=== PATIENT | female | born 1950 | race Caucasian/White ===

== ENCOUNTER 2016-10-27 17:44 | Observation (INO) | payer BC ==
[~2016-10-27] VITALS: Ht 170.2 cm; Wt 117.0 kg
[~2016-10-27 17:44] MED LIST: ADVIN25050 INH; ALBU1AER9 INH; AMB5 PO; ASPEC81 PO; CLON0.5T3 PO; CLON1TAB3 PO; CLR/5 PO; CYM/30 PO; DTR/5 PO; DXY100 PO; LEVA0.63 INH; LMC25 PO; MELO15TA10 PO; METO100T44 PO; MULTTAB58 PO; NRV5 PO; NTRSLP4 SL; PANT40TA PO; SNG10 PO
[2016-10-27] MEDS ORDERED: SODIUM CHLORIDE 0.9% 1000ML 1,000 ML IV STA (17:49)
[2016-10-27] MEDS ORDERED: ONDANSETRON INJ 2 MG/ML 2 ML VIAL IV STA (17:49)
--- NOTE | 2016-10-27 17:58 | EMERGENCY ROOM VISIT NOTE ---
History Report prepared by Claudette: Willam Frye Under the Supervision of: Dr. Robert Neal D.O. First contact with patient: 17:45 Chief Complaint: ILLNESS Stated Complaint: DIARRHEA, KNEE PAIN, NAUSEA History of Present Illness The patient is a 66 year old female who presents to the Emergency Room with complaints of a persistent illness that started around 0300 this morning. She says this is her second bout with this similar illness, her first one being around . This morning, the patient started having nausea, diarrhea , and feeling really cold. Her face then felt like it was on fire. She feels like vomiting but denies any vomiting. The patient took 2 ammonium this morning , and then proceeded to take 2 more throughout the day. However, she continues to have episodes of diarrhea again. She has only been sipping water and Gatorade , but she cannot keep any liquids down. She says she has had no problems with infectious diarrhea like C difficile. The patient notes that she has not taken any recent antibiotics. She is an ex-smoker. The patient is supposed to have a colonoscopy soon. Source of History: patient Onset: 0300 this morning Position: other (global - illness) Timing: other (persistent) Associated Symptoms: + diarrhea, + nausea, No vomiting Note: Associated symptoms: Feeling really cold, then face feeling like it was on fire. Review of Systems See HPI for pertinent positives & negatives. A total of 10 systems reviewed and were otherwise negative. Past Medical & Surgical Medical Problems: (1) Asthma (2) Depression (3) GERD (gastroesophageal reflux disease) (4) Hereditary essential tremor Surgical Problems: (1) H/O esophagogastroduodenoscopy (2) H/O foot surgery (3) H/O shoulder surgery (4) H/O thumb surgery (5) History of knee surgery (6) S/P cholecystectomy (7) S/P hysterectomy Family History Diabetes mellitus MOTHER BROTHER SISTER FH: cancer FATHER Heart disease MOTHER BROTHER Social History Smoking Status: Former Smoker Marital Status: single Occupation Status: employed Current/Historical Medications Scheduled Aspirin (Aspirin EC Low Dose), 81 MG PO QAM Clonazepam (Klonopin), 5 MG PO QAM Clonazepam (Klonopin), 10 MG PO HS Desloratadine (Clarinex), 5 MG PO QAM Doxycycline Hyclate (Doxycycline Hyclate), 100 MG PO BID Duloxetine HCl (Cymbalta), 30 MG PO QAM Duloxetine HCl (Cymbalta), 60 MG PO QAM Fluticasone Prop/Salmeterol (Advair Diskus 250/50 Mcg *), 1 PUFF INH BID Lamotrigine (Lamictal), 75 MG PO BID Levalbuterol Soln (Xopenex 0.63MG/3ML), 0.63 MG INH QID PRN Meloxicam (Mobic), 15 MG PO QAM Metoprolol Succ (Toprol Xl) (Toprol-Xl ), 100 MG PO QAM Montelukast (Singulair *), 10 MG PO QAM Multiple Vitamin (Multivitamin), 1 TAB PO QAM Oxybutynin Chloride (Ditropan), 5 MG PO DAILY Pantoprazole Sodium (Protonix), 40 MG PO BID Scheduled PRN Albuterol (Proair Hfa), 2 PUFF INH Q4H PRN for WHEEZING Nitroglycerin (Nitrostat), 0.4 MG SL Q4 PRN for Chest Pain Allergies Coded Allergies: Penicillins (Verified Allergy, Mild, rash, 10/27/16) Codeine (Verified Allergy, Unknown, n/v, 10/27/16) Physical Exam Vital Signs Date Time Temp Pulse Resp B/P Pulse Ox O2 Delivery O2 Flow Rate FiO2 10/27/16 19:09 84 10/27/16 18:00 37.7 92 20 148/89 94 Room Air Physical Exam GENERAL: Patient is awake, alert, mildly anxious appearing but comfortable. EYES: The conjunctivae are clear. The pupils are round and reactive. EARS, NOSE, MOUTH AND THROAT: The nose is without any evidence of any deformity. Mucous membranes are dry. NECK: The neck is nontender and supple. RESPIRATORY: Normal respiratory effort is noted there is no evidence of wheezing rhonchi or rales CARDIOVASCULAR: Regular rate and rhythm noted there no murmurs rubs or gallops normal S1 normal S2 GASTROINTESTINAL: The abdomen is distended but soft. No specific guarding or rigidity noted. MUSCULOSKELETAL/EXTREMITIES: There is no evidence of gross deformity full range of motion is noted in the hips and shoulders SKIN: There is no obvious evidence of any rash. There are no petechiae, pallor or cyanosis noted. NEUROLOGIC: Patient is awake alert and oriented x3 strength is symmetric patellar reflexes are 2+ bilaterally Medical Decision & Procedures ER Provider Diagnostic Interpretation: X-rays of the abdomen and upright chest were obtained in the emergency department. The report was reviewed. CHEST AND ABDOMEN 2 VIEWS HISTORY: Generalized abdominal pain. COMPARISON: Chest 01/02/2016. FINDINGS: Stable mild cardiomegaly. Bibasilar linear densities favor subsegmental atelectasis. This is not significantly changed. No new focal lung consolidations. No evidence for pulmonary edema. No pleural effusions. No pneumothorax. Prior cholecystectomy. Multiple calcified splenic granulomas. No pneumoperitoneum. No pneumatosis. Multiple pelvic phleboliths. No renal calculi. Nondilated air-filled loops of large and small bowel seen throughout the abdomen. No evidence for bowel obstruction. IMPRESSION: 1. Stable mild cardiomegaly. No acute process within the chest. 2. Unremarkable bowel gas pattern. No evidence for bowel obstruction. Electronically signed by: Rodney Blackburn M.D. 10/27/2016 8:27 PM Laboratory Results 10/27/16 18:10 Red Blood Count 4.47, Mean Corpuscular Volume 91.1, Mean Corpuscular Hemoglobin 29.8, Mean Corpuscular Hemoglobin Concent 32.7, Mean Platelet Volume 8.9, Neutrophils (%) (Auto) 84.2, Lymphocytes (%) (Auto) 10.3, Monocytes (%) (Auto) 4.8, Eosinophils (%) (Auto) 0.3, Basophils (%) (Auto) 0.1, Neutrophils # (Auto) 5.91, Lymphocytes # (Auto) 0.72, Monocytes # (Auto) 0.34, Eosinophils # (Auto) 0.02, Basophils # (Auto) 0.01 10/27/16 18:10 Test 10/27/16 18:10 White Blood Count 7.02 K/uL (4.8-10.8) Red Blood Count 4.47 M/uL (4.2-5.4) Hemoglobin 13.3 g/dL (12.0-16.0) Hematocrit 40.7 % (37-47) Mean Corpuscular Volume 91.1 fL (80-100) Mean Corpuscular Hemoglobin 29.8 pg (25-34) Mean Corpuscular Hemoglobin Concent 32.7 g/dl (32-36) Platelet Count 181 K/uL (130-400) Mean Platelet Volume 8.9 fL (7.4-10.4) Neutrophils (%) (Auto) 84.2 % Lymphocytes (%) (Auto) 10.3 % Monocytes (%) (Auto) 4.8 % Eosinophils (%) (Auto) 0.3 % Basophils (%) (Auto) 0.1 % Neutrophils # (Auto) 5.91 K/uL (1.4-6.5) Lymphocytes # (Auto) 0.72 K/uL (1.2-3.4) Monocytes # (Auto) 0.34 K/uL (0.11-0.59) Eosinophils # (Auto) 0.02 K/uL (0-0.5) Basophils # (Auto) 0.01 K/uL (0-0.2) RDW Standard Deviation 46.1 fL (36.4-46.3) RDW Coefficient of Variation 13.9 % (11.5-14.5) Immature Granulocyte % (Auto) 0.3 % Immature Granulocyte # (Auto) 0.02 K/uL (0.00-0.02) Prothrombin Time 10.1 SECONDS (9.0-12.0) Prothromb Time International Ratio 0.9 (0.9-1.1) Activated Partial Thromboplast Time 25.7 SECONDS (21.0-31.0) Partial Thromboplastin Ratio 1.0 Anion Gap 8.0 mmol/L (3-11) Est Creatinine Clear Calc Drug Dose 74.9 ml/min Estimated GFR () 69.3 Estimated GFR (Non- 59.8 BUN/Creatinine Ratio 10.9 (10-20) Calcium Level 8.4 mg/dl (8.5-10.1) Magnesium Level 1.7 mg/dl (1.8-2.4) Total Bilirubin 0.4 mg/dl (0.2-1) Direct Bilirubin 0.1 mg/dl (0-0.2) Aspartate Amino Transf (AST/SGOT) 22 U/L (15-37) Alanine Aminotransferase (ALT/SGPT) 29 U/L (12-78) Alkaline Phosphatase 97 U/L (45-117) Total Creatine Kinase 54 U/L (26-192) Creatine Kinase MB < 0.5 ng/ml (0.5-3.6) Creatine Kinase MB Ratio (0-3.0) Troponin I < 0.015 ng/ml (0-0.045) Total Protein 6.9 gm/dl (6.4-8.2) Albumin 3.5 gm/dl (3.4-5.0) Lipase 328 U/L (73-393) Laboratory results per my review. Medications Administered Medications (Trade) Dose Ordered Sig/Ember Route Start Time Stop Time Status Last Admin Dose Admin Sodium Chloride (Nss 1000ml) 1,000 ml @ 999 mls/hr Q1H1M STAT IV 10/27/16 17:49 10/27/16 18:49 DC 10/27/16 17:49 999 MLS/HR Ondansetron HCl (Zofran Inj) 4 mg NOW STAT IV 10/27/16 17:49 10/27/16 17:51 DC 10/27/16 18:42 4 MG Magnesium Sulfate (Magnesium Sulfate) 1 gm NOW STAT IV 10/27/16 20:02 10/27/16 20:04 DC 10/27/16 20:02 1 GM ECG Indication: other (illness) Rate (beats per minute): 88 Rhythm: normal sinus Findings: no ectopy, other (No acute ST segment abnormalities, T wave flattening noted in anterior leads) Change: no significant change (otherwise no change from 01/04/2016) ED Course 1744: The patient was evaluated in room A12A. A complete history and physical examination were performed. 1748: Ordered Zofran Inj 4 mg IV, NSS 1000 ml @ 999 mls/hr IV. 1914: Ordered Magnesium Sulfate 2 gm IV. 1914: I reevaluated the patient and she is resting comfortably. Medical Decision Differential diagnosis: Etiologies such as appendicitis, diverticulitis, PUD, biliary pathology, UTI, pancreatitis, obstruction, mesenteric ischemia, aortic pathology, infections, inflammatory bowel disease, renal colic, as well as others were entertained. Nursing notes reviewed. The patient is a 66-year-old female who presented to the emergency department for an evaluation of diarrhea nausea. The patient had low-grade fever. Her physical exam was not consistent with an acute surgical abdomen. The patient was treated with IV fluids and IV magnesium as well as IV Zofran in the emergency department. She was reevaluated multiple times. On subsequent reevaluation she was feeling much better. I discussed the patient's laboratory and radiographic studies with her. She was not able to give a stool sample for evaluation. The patient continued to have symptoms of abdominal crampiness. I discussed her case with the on-call [facility] hospitalist group. They have agreed to evaluate the patient in emergency apartment for further management and disposition. Likely the patient would require further IV hydration if her symptoms do not improve. Consults Time Called: 2054 Consulting Physician: Dr Corado Returned Call: 2099 Impression Primary Impression: Diarrhea Additional Impressions: Nausea, Hypomagnesemia Scribe Attestation The scribe's documentation has been prepared under my direction and personally reviewed by me in its entirety. I confirm that the note above accurately reflects all work, treatment, procedures, and medical decision making performed by me. Departure Information Referrals Tano Ramirez D.O. (PCP) Patient Instructions A Signature Page, [facility]
[2016-10-27 18:00] VITALS: Ht 170.2 cm; Wt 117.0 kg
[2016-10-27] MEDS ORDERED: CLON1TAB3 PO ×2 (18:19)
[2016-10-27] MEDS ORDERED: LAMO150T PO (18:19)
[2016-10-27 18:37] LABS: BASO % 0.1 %; BASO ABS # 0.01 K/uL (0-0.2); COMPLETE YES; EOS % 0.3 %; HEMATOCRIT 40.7 % (37-47); IG% 0.3 %; LYMPH % 10.3 %; LYMPH ABS # 0.72 K/uL (1.2-3.4); MEAN CELL VOLUME 91.1 fL (80-100); MEAN CORPUSCULAR HEMOGLOBIN 29.8 pg (25-34); MEAN CORPUSCULAR HGB CONC 32.7 g/dl (32-36); MEAN PLATELET VOLUME 8.9 fL (7.4-10.4); MONO % 4.8 %; NEUT % 84.2 %; PLATELET COUNT 181 K/uL (130-400); RED BLOOD COUNT 4.47 M/uL (4.2-5.4); WHITE BLOOD COUNT 7.02 K/uL (4.8-10.8)
[2016-10-27 18:51] LABS: INR 0.9 (0.9-1.1); PROTHROMBIN TIME (PATIENT) 10.1 SECONDS (9.0-12.0)
[2016-10-27 19:04] LABS: ALT/SGPT 29 U/L (12-78); AST/SGOT 22 U/L (15-37); BLOOD UREA NITROGEN 11 mg/dl (7-18); BUN/CREATININE RATIO 10.9 (10-20); CALCIUM 8.4 mg/dl (8.5-10.1); CARBON DIOXIDE 27 mmol/L (21-32); CHLORIDE 104 mmol/L (98-107); CREATININE 0.99 mg/dl (0.60-1.20); GLUCOSE 103 mg/dl (70-99); MAGNESIUM 1.7 mg/dl (1.8-2.4); SODIUM 139 mmol/L (136-145)
[2016-10-27 19:05] LABS: ALKALINE PHOSPHATASE 97 U/L (45-117)
[2016-10-27] MEDS ORDERED: MAGNESIUM SULFATE 1GM / D5W 1 GM BAG IV STA ×2 (19:15→20:02)
[2016-10-27] MEDS ORDERED: MAGNESIUM OXIDE 400 MG TAB PO STA (20:02)
[2016-10-27] MEDS ORDERED: ONDANSETRON HOME PACK 4MG OD TAB PO ONE (20:15)
--- NOTE | 2016-10-27 20:29 | DIAGNOSTIC IMAGING REPORT ---
CHEST AND ABDOMEN 2 VIEWS HISTORY: Generalized abdominal pain. COMPARISON: Chest 01/02/2016. FINDINGS: Stable mild cardiomegaly. Bibasilar linear densities favor subsegmental atelectasis. This is not significantly changed. No new focal lung consolidations. No evidence for pulmonary edema. No pleural effusions. No pneumothorax. Prior cholecystectomy. Multiple calcified splenic granulomas. No pneumoperitoneum. No pneumatosis. Multiple pelvic phleboliths. No renal calculi. Nondilated air-filled loops of large and small bowel seen throughout the abdomen. No evidence for bowel obstruction. IMPRESSION: 1. Stable mild cardiomegaly. No acute process within the chest. 2. Unremarkable bowel gas pattern. No evidence for bowel obstruction. Electronically signed by: Rodney Blackburn M.D. 10/27/2016 8:27 PM
[2016-10-27] MEDS ORDERED: ALUMINUM/MAGNESIUM/SIMETH (MAALOX MAX) 30 ML UDC PO PRN (22:30)
[2016-10-27] MEDS ORDERED: ALBUTEROL HFA 8 GM INHALER INH PRN (22:30)
[2016-10-27] MEDS ORDERED: ONDANSETRON INJ 2 MG/ML 2 ML VIAL IV PRN (22:30)
[2016-10-27] MEDS ORDERED: MAGNESIUM HYDROXIDE SUSP 30 ML UDC PO PRN (22:30)
[2016-10-27] MEDS ORDERED: POLYETHYLENE (MIRALAX) 17 GM PACK PO PRN (22:30)
[2016-10-27] MEDS ORDERED: NITROGLYCERIN 0.4 MG SL PER TAB CHARGE SL PRN (22:30)
--- NOTE | 2016-10-27 22:49 | History and Physical ---
History & Physical Date & Time of Service: Oct 27, 2016 at 22:40 Chief Complaint: Diarrhea, Knee Pain, Nausea Primary Care Physician: Aurelia Adkins D.O. History of Present Illness Source: patient, clinic records, hospital records This is a 66 year old female with PMH of major depression/anxiety, asthma, GERD presents with decreased PO intake and nausea/diarrhea - states that this began at 3AM on Wednesday, October 26 - she states that on she has some diarrhea, and took Imodium, it took about 3-4 days for recovery from this diarrhea, and she was doing well until Wednesday, she woke up from sleep due to the diarrhea - she states that associated with this diarrhea was a headache, which is now improving. Was given IVFs in the ER - states she feels much better - but is afraid of going home and having to come back to the hospital. She has been under a lot of stress recently from work; but states her medications for depression and anxiety are working to alleviate her symptoms. Past Medical/Surgical History Medical Problems: (1) Asthma Status: Chronic (2) Depression Status: Chronic (3) GERD (gastroesophageal reflux disease) Status: Chronic (4) Hereditary essential tremor Status: Chronic Surgical Problems: (1) H/O esophagogastroduodenoscopy Status: Chronic (2) H/O foot surgery Status: Chronic (3) H/O shoulder surgery Status: Chronic (4) H/O thumb surgery Status: Chronic (5) History of knee surgery Status: Resolved (6) S/P cholecystectomy Status: Chronic (7) S/P hysterectomy Status: Chronic Family History Diabetes mellitus MOTHER BROTHER SISTER FH: cancer FATHER Heart disease MOTHER BROTHER Social History Smoking Status: Never Smoker Marital Status: single Housing status: lives alone Occupational Status: employed Allergies Coded Allergies: Penicillins (Verified Allergy, Mild, rash, 10/27/16) Codeine (Verified Allergy, Unknown, n/v, 10/27/16) Home Medications Scheduled Aspirin (Aspirin EC Low Dose), 81 MG PO QAM Clonazepam (Klonopin), 5 MG PO QAM Clonazepam (Klonopin), 10 MG PO HS Desloratadine (Clarinex), 5 MG PO QAM Doxycycline Hyclate (Doxycycline Hyclate), 100 MG PO BID Duloxetine HCl (Cymbalta), 30 MG PO QAM Duloxetine HCl (Cymbalta), 60 MG PO QAM Fluticasone Prop/Salmeterol (Advair Diskus 250/50 Mcg *), 1 PUFF INH BID Lamotrigine (Lamictal), 75 MG PO BID Levalbuterol Soln (Xopenex 0.63MG/3ML), 0.63 MG INH QID PRN Meloxicam (Mobic), 15 MG PO QAM Metoprolol Succ (Toprol Xl) (Toprol-Xl ), 100 MG PO QAM Montelukast (Singulair *), 10 MG PO QAM Multiple Vitamin (Multivitamin), 1 TAB PO QAM Oxybutynin Chloride (Ditropan), 5 MG PO DAILY Pantoprazole Sodium (Protonix), 40 MG PO BID Scheduled PRN Albuterol (Proair Hfa), 2 PUFF INH Q4H PRN for WHEEZING Nitroglycerin (Nitrostat), 0.4 MG SL Q4 PRN for Chest Pain Review of Systems Constitutional: + weakness, No chills, No fever Eyes: No worsening of vision Respiratory: No cough, No shortness of breath, No sputum Cardiovascular: No chest pain, No edema, No palpitations Abdomen: + diarrhea, + nausea, No GI bleeding, No constipation, No pain, No vomiting Genitourinary - Female: No dysuria, No hematuria, No urinary frequency, No urinary incontinence, No urinary retention, No urinary urgency Psychiatric: + anxiety (controlled with medications), + depression symptoms Hematologic / Lymphatic: No abnormal bleeding/bruising Integumentary: No rash Allergic / Immunologic: No environmental allergies, No seasonal allergies Physical Exam Vital Signs Date Time Temp Pulse Resp B/P Pulse Ox O2 Delivery O2 Flow Rate FiO2 10/27/16 20:59 123/67 10/27/16 20:44 80 18 10/27/16 20:29 132/72 10/27/16 20:14 85 18 10/27/16 20:01 133/66 10/27/16 19:14 86 20 92 10/27/16 19:09 84 10/27/16 18:00 37.7 92 20 148/89 94 Room Air 10/27/16 17:47 148/89 General Appearance: no apparent distress Head: normocephalic, atraumatic Eyes: normal inspection ENT: hearing grossly normal Respiratory/Chest: lungs clear, normal breath sounds, no respiratory distress, no accessory muscle use Cardiovascular: regular rate, rhythm, no edema, no murmur Abdomen/GI: normal bowel sounds, non tender, soft, no organomegaly Back: no CVA tenderness, no muscle spasm Extremities/Musculoskelatal: normal capillary refill, no pedal edema 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, no motor/sensory deficits, alert, normal mood/affect, oriented x 3 Skin: normal color Lymphatic: no adenopathy Diagnostics Laboratory Results Results Past 24 Hours Test 10/27/16 18:10 Range/Units White Blood Count 7.02 4.8-10.8 K/uL Red Blood Count 4.47 4.2-5.4 M/uL Hemoglobin 13.3 12.0-16.0 g/dL Hematocrit 40.7 37-47 % Mean Corpuscular Volume 91.1 80-100 fL Mean Corpuscular Hemoglobin 29.8 25-34 pg Mean Corpuscular Hemoglobin Concent 32.7 32-36 g/dl Platelet Count 181 130-400 K/uL Mean Platelet Volume 8.9 7.4-10.4 fL Neutrophils (%) (Auto) 84.2 % Lymphocytes (%) (Auto) 10.3 % Monocytes (%) (Auto) 4.8 % Eosinophils (%) (Auto) 0.3 % Basophils (%) (Auto) 0.1 % Neutrophils # (Auto) 5.91 1.4-6.5 K/uL Lymphocytes # (Auto) 0.72 1.2-3.4 K/uL Monocytes # (Auto) 0.34 0.11-0.59 K/uL Eosinophils # (Auto) 0.02 0-0.5 K/uL Basophils # (Auto) 0.01 0-0.2 K/uL RDW Standard Deviation 46.1 36.4-46.3 fL RDW Coefficient of Variation 13.9 11.5-14.5 % Immature Granulocyte % (Auto) 0.3 % Immature Granulocyte # (Auto) 0.02 0.00-0.02 K/uL Prothrombin Time 10.1 9.0-12.0 SECONDS Prothromb Time International Ratio 0.9 0.9-1.1 Activated Partial Thromboplast Time 25.7 21.0-31.0 SECONDS Partial Thromboplastin Ratio 1.0 Sodium Level 139 136-145 mmol/L Potassium Level 4.0 3.5-5.1 mmol/L Chloride Level 104 98-107 mmol/L Carbon Dioxide Level 27 21-32 mmol/L Anion Gap 8.0 3-11 mmol/L Blood Urea Nitrogen 11 7-18 mg/dl Creatinine 0.99 0.60-1.20 mg/dl Est Creatinine Clear Calc Drug Dose 74.9 ml/min Estimated GFR () 69.3 Estimated GFR (Non- 59.8 BUN/Creatinine Ratio 10.9 10-20 Random Glucose 103 70-99 mg/dl Calcium Level 8.4 8.5-10.1 mg/dl Magnesium Level 1.7 1.8-2.4 mg/dl Total Bilirubin 0.4 0.2-1 mg/dl Direct Bilirubin 0.1 0-0.2 mg/dl Aspartate Amino Transf (AST/SGOT) 22 15-37 U/L Alanine Aminotransferase (ALT/SGPT) 29 12-78 U/L Alkaline Phosphatase 97 45-117 U/L Total Creatine Kinase 54 26-192 U/L Creatine Kinase MB < 0.5 0.5-3.6 ng/ml Creatine Kinase MB Ratio 0-3.0 Troponin I < 0.015 0-0.045 ng/ml Total Protein 6.9 6.4-8.2 gm/dl Albumin 3.5 3.4-5.0 gm/dl Lipase 328 73-393 U/L Diagnostic Radiology CHEST AND ABDOMEN 2 VIEWS HISTORY: Generalized abdominal pain. COMPARISON: Chest 01/02/2016. FINDINGS: Stable mild cardiomegaly. Bibasilar linear densities favor subsegmental atelectasis. This is not significantly changed. No new focal lung consolidations. No evidence for pulmonary edema. No pleural effusions. No pneumothorax. Prior cholecystectomy. Multiple calcified splenic granulomas. No pneumoperitoneum. No pneumatosis. Multiple pelvic phleboliths. No renal calculi. Nondilated air-filled loops of large and small bowel seen throughout the abdomen. No evidence for bowel obstruction. IMPRESSION: 1. Stable mild cardiomegaly. No acute process within the chest. 2. Unremarkable bowel gas pattern. No evidence for bowel obstruction. Normal EKG Impression Assessment and Plan This is a 66 year old female with PMH of major depression/anxiety, asthma, GERD presents with decreased PO intake and nausea/diarrhea Viral Gastroenteritis -->patient with diarrhea, decreased PO intake, headache -->likely related to a viral infection -->will continue with IVFs (was given 1L in the ER) -->Zofran PRN -->clear liquid diet and advance as tolerated Hypomagnesemia -->replace Mg and monitor, likely from diarrhea GERD -->continue PPI Major Depression -->continue home medications DVT ppx -->SCDs FULL CODE observation status - likely d/c in AM once tolerating PO intake VTE Prophylaxis VTE Risk Assessment Done? Y/N: Yes Risk Level: Low
[2016-10-27] MEDS ORDERED: IV FLUIDS COMPLETED PRN (23:00)
[2016-10-28 00:30] VITALS: BP 127/43; PULSE 84; TEMP 37.1; O2SAT 94
[2016-10-28] MEDS: ACETAMINOPHEN 325 MG TAB PO PRN ×3 (01:01→23:58)
[2016-10-28] MEDS: SODIUM CHLORIDE 0.9% 1000ML 1,000 ML IV SCH ×3 (02:30→21:45)
[2016-10-28 05:14] LABS: URINE APPEARANCE CLEAR (CLEAR); URINE BILIRUBIN NEG (NEG); URINE COLOR YELLOW; URINE NITRITE NEG (NEG); URINE PH 5.5 (4.5-7.5); URINE SPECIFIC GRAVITY 1.009 (1.000-1.030); UROBILINOGEN NEG (NEG)
[2016-10-28 05:17] LABS: MANUAL MICROSCOPIC REQUIRED? NO
[2016-10-28 05:18] LABS: REVIEW REQ? NO
[2016-10-28 07:25] LABS: HEMATOCRIT 39.8 % (37-47); MEAN CELL VOLUME 93.2 fL (80-100); MEAN CORPUSCULAR HEMOGLOBIN 30.4 pg (25-34); MEAN CORPUSCULAR HGB CONC 32.7 g/dl (32-36); MEAN PLATELET VOLUME 8.7 fL (7.4-10.4); PLATELET COUNT 153 K/uL (130-400); RED BLOOD COUNT 4.27 M/uL (4.2-5.4); WHITE BLOOD COUNT 4.25 K/uL (4.8-10.8)
[2016-10-28 07:49] LABS: BUN/CREATININE RATIO 11.1 (10-20); MAGNESIUM 2.2 mg/dl (1.8-2.4); POTASSIUM 3.7 mmol/L (3.5-5.1)
[2016-10-28] MEDS: ASPIRIN 81 MG ECTAB PO SCH (08:00)
[2016-10-28] MEDS: DULOXETINE (CYMBALTA) 30 MG CAP PO SCH ×3 (08:00→08:07)
[2016-10-28] MEDS: DULOXETINE HCL 60 MG CAP PO SCH ×3 (08:00→08:07)
[2016-10-28] MEDS: FLUTICASONE/SALMETEROL 250/50 (ADVAIR) 14 PUFF/1 INHALER INH SCH ×2 (08:00→21:40)
[2016-10-28] MEDS: MONTELUKAST SOD 10 MG TAB PO SCH (08:00)
[2016-10-28] MEDS: PANTOprazole SOD 40 MG TAB PO SCH ×2 (08:00→21:41)
[2016-10-28] MEDS: OXYBUTYNIN CHLORIDE 5 MG TAB PO SCH (08:00)
[2016-10-28] MEDS: MELOXICAM 7.5 MG TAB PO SCH (08:00)
[2016-10-28] MEDS: MULTIVITAMIN TAB PO SCH (08:00)
[2016-10-28] MEDS: METOPROLOL SUCC 50MG EXT REL TAB PO SCH (08:01)
[2016-10-28] MEDS: CLONAZEPAM 0.5 MG TAB PO SCH (08:04)
[2016-10-28] MEDS ORDERED: NURSING VERBAL MED ORDER ONE (08:15)
[2016-10-28 08:57] VITALS: BP 110/57; PULSE 85; TEMP 36.7; O2SAT 93
[2016-10-28 12:25] VITALS: TEMP 37
--- NOTE | 2016-10-28 13:41 | Progress Note ---
Internal Med Progress Note Date of Service: Oct 28, 2016. Provider Documentation: SUBJECTIVE: Patient is interviewed and examined at bedside. Currently she denies any nausea , vomiting, diarrhea and has minimal lower abdominal pain. Also denies any chest pain, SOB. 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 ASSESSMENT & PLAN: Patient is a 66 yr female with PMH of major depression/anxiety, asthma, GERD who presented with decreased oral intake, nausea and diarrhea which began one week ago and had not relived with Imodium use prior to admission. GI symptoms are associated with mild headache Assessment and plan: Gastroenteritis: : Likely Viral in origin : Nausea, diarrhea improving : Continue IV Fluids : Advance diet as tolerated Zofran for nausea, No antibiotics for now Stool studies pending Hypomagnesemia Secondary to GI loses S/P Mg replacement Currently: 2.2 Monitor levels GERD continue PPI Major Depression Stable Continue home medications Asthma: Stable Continue home medications DVT px SCDs Code Status: FULL CODE Disposition: Plan to discharge home tomorrow if stable Vital Signs: Date Time Temp Pulse Resp B/P Pulse Ox O2 Delivery O2 Flow Rate FiO2 10/28/16 08:57 36.7 85 20 110/57 93 Room Air 10/28/16 08:00 Room Air 10/28/16 00:30 37.1 84 18 127/43 94 Room Air 10/28/16 00:08 81 18 121/83 94 10/27/16 23:05 81 10/27/16 23:04 80 18 117/63 93 Room Air 10/27/16 20:59 123/67 10/27/16 20:44 80 18 10/27/16 20:29 132/72 10/27/16 20:14 85 18 10/27/16 20:01 133/66 10/27/16 19:14 86 20 92 10/27/16 19:09 84 10/27/16 18:00 37.7 92 20 148/89 94 Room Air 10/27/16 17:47 148/89 Lab Results: Results Past 24 Hours Test 10/27/16 18:10 10/28/16 05:00 10/28/16 06:39 Range/Units White Blood Count 7.02 4.25 4.8-10.8 K/uL Red Blood Count 4.47 4.27 4.2-5.4 M/uL Hemoglobin 13.3 13.0 12.0-16.0 g/dL Hematocrit 40.7 39.8 37-47 % Mean Corpuscular Volume 91.1 93.2 80-100 fL Mean Corpuscular Hemoglobin 29.8 30.4 25-34 pg Mean Corpuscular Hemoglobin Concent 32.7 32.7 32-36 g/dl Platelet Count 181 153 130-400 K/uL Mean Platelet Volume 8.9 8.7 7.4-10.4 fL Neutrophils (%) (Auto) 84.2 % Lymphocytes (%) (Auto) 10.3 % Monocytes (%) (Auto) 4.8 % Eosinophils (%) (Auto) 0.3 % Basophils (%) (Auto) 0.1 % Neutrophils # (Auto) 5.91 1.4-6.5 K/uL Lymphocytes # (Auto) 0.72 1.2-3.4 K/uL Monocytes # (Auto) 0.34 0.11-0.59 K/uL Eosinophils # (Auto) 0.02 0-0.5 K/uL Basophils # (Auto) 0.01 0-0.2 K/uL RDW Standard Deviation 46.1 48.4 36.4-46.3 fL RDW Coefficient of Variation 13.9 14.2 11.5-14.5 % Immature Granulocyte % (Auto) 0.3 % Immature Granulocyte # (Auto) 0.02 0.00-0.02 K/uL Prothrombin Time 10.1 9.0-12.0 SECONDS Prothromb Time International Ratio 0.9 0.9-1.1 Activated Partial Thromboplast Time 25.7 21.0-31.0 SECONDS Partial Thromboplastin Ratio 1.0 Sodium Level 139 142 136-145 mmol/L Potassium Level 4.0 3.7 3.5-5.1 mmol/L Chloride Level 104 108 98-107 mmol/L Carbon Dioxide Level 27 27 21-32 mmol/L Anion Gap 8.0 7.0 3-11 mmol/L Blood Urea Nitrogen 11 11 7-18 mg/dl Creatinine 0.99 1.00 0.60-1.20 mg/dl Est Creatinine Clear Calc Drug Dose 74.9 74.2 ml/min Estimated GFR () 69.3 68.5 Estimated GFR (Non- 59.8 59.1 BUN/Creatinine Ratio 10.9 11.1 10-20 Random Glucose 103 94 70-99 mg/dl Calcium Level 8.4 8.0 8.5-10.1 mg/dl Magnesium Level 1.7 2.2 1.8-2.4 mg/dl Total Bilirubin 0.4 0.2-1 mg/dl Direct Bilirubin 0.1 0-0.2 mg/dl Aspartate Amino Transf (AST/SGOT) 22 15-37 U/L Alanine Aminotransferase (ALT/SGPT) 29 12-78 U/L Alkaline Phosphatase 97 45-117 U/L Total Creatine Kinase 54 26-192 U/L Creatine Kinase MB < 0.5 0.5-3.6 ng/ml Creatine Kinase MB Ratio 0-3.0 Troponin I < 0.015 0-0.045 ng/ml Total Protein 6.9 6.4-8.2 gm/dl Albumin 3.5 3.4-5.0 gm/dl Lipase 328 73-393 U/L Urine Color YELLOW Urine Appearance CLEAR CLEAR Urine pH 5.5 4.5-7.5 Urine Specific [place] 1.009 1.000-1.030 Urine Protein NEG NEG Urine Glucose (UA) NEG NEG Urine Ketones NEG NEG Urine Occult Blood NEG NEG Urine Nitrite NEG NEG Urine Bilirubin NEG NEG Urine Urobilinogen NEG NEG Urine Leukocyte Esterase NEG NEG
[2016-10-28 15:05] VITALS: BP 97/62; PULSE 63; TEMP 36.7; O2SAT 95
[2016-10-28] MEDS ORDERED: DULOXETINE HCL 60 MG CAP PO SCH (21:00)
[2016-10-28] MEDS ORDERED: DULOXETINE (CYMBALTA) 30 MG CAP PO SCH (21:00)
[2016-10-28] MEDS ORDERED: CLONAZEPAM 1 MG TAB PO SCH (21:00)
[2016-10-29 00:52] VITALS: BP 130/67; PULSE 68; TEMP 37.1; O2SAT 92
[2016-10-29 07:45] VITALS: BP 98/60; PULSE 68; TEMP 37; O2SAT 94
[2016-10-29] MEDS: SODIUM CHLORIDE 0.9% 1000ML 1,000 ML IV SCH (07:54)
[2016-10-29] MEDS: PANTOprazole SOD 40 MG TAB PO SCH (07:55)
[2016-10-29] MEDS: MONTELUKAST SOD 10 MG TAB PO SCH (07:55)
[2016-10-29] MEDS: FLUTICASONE/SALMETEROL 250/50 (ADVAIR) 14 PUFF/1 INHALER INH SCH (07:55)
[2016-10-29] MEDS: OXYBUTYNIN CHLORIDE 5 MG TAB PO SCH (07:56)
[2016-10-29] MEDS: MULTIVITAMIN TAB PO SCH (07:56)
[2016-10-29] MEDS: METOPROLOL SUCC 50MG EXT REL TAB PO SCH (07:56)
[2016-10-29] MEDS: MELOXICAM 7.5 MG TAB PO SCH (07:56)
[2016-10-29] MEDS: ASPIRIN 81 MG ECTAB PO SCH (07:56)
[2016-10-29] MEDS: CLONAZEPAM 0.5 MG TAB PO SCH (07:58)
[2016-10-29 08:01] VITALS: BP 128/63; PULSE 65
[2016-10-29] MEDS: ACETAMINOPHEN 325 MG TAB PO PRN (09:05)
[2016-10-29] MEDS ORDERED: DICLOFENAC SOD 1% GEL 100 GM TUBE EXT PRN (12:30)
[2016-10-29] MEDS ORDERED: NURSING VERBAL MED ORDER ONE (12:45)
--- NOTE | 2016-10-29 12:47 | Discharge Instructions ---
Discharge Instructions Admission Reason for Admission: Viral Gastroenteritis Discharge Discharge Diagnosis / Problem: Viral Gastroenteritis Discharge Goals Goal(s): Decrease discomfort, Improve function Activity Recommendations Activity Limitations: resume your previous activity Exercise/Sports Limitations: as tolerated . Instructions / Follow-Up Instructions / Follow-Up Follow up with on 11/05/16 at 10.50am at [facility] Take adequate oral intake to keep yourself hydrated Seek immediate medical attention if your develop any fever or your diarrhea is persistent Current Hospital Diet Patient's current hospital diet: Regular Diet Discharge Diet Recommended Diet: Regular Diet Pending Studies Studies pending at discharge: no Medical Emergencies . Who to Call and When: Medical Emergencies: If at any time you feel your situation is an emergency, please call 911 immediately. . Non-Emergent Contact Non-Emergency issues call your: Primary Care Provider . . "Provider Documentation" section prepared by Rene Huerta. VTE Core Measure Inpt VTE Proph given/why not?: SCD's
[2016-10-29 12:59] VITALS: BP 128/63; PULSE 65; TEMP 37; O2SAT 94
--- NOTE | 2016-10-29 13:02 | Progress Note ---
Internal Med Progress Note Date of Service: Oct 29, 2016. Provider Documentation: SUBJECTIVE: Patient is interviewed and examined at bedside. Patient had an episode of diarrhea overnight but currently resolved. She denies any any nausea, vomiting, abdominal pain. OBJECTIVE: Vital Signs-as noted below General Appearance: no apparent distress, Well built and nourished Head: normocephalic, atraumatic Eyes: normal inspection, EOMI, PERRLA ENT: hearing grossly normal Respiratory/Chest: lungs clear, normal breath sounds, no respiratory distress, no accessory muscle use Cardiovascular: regular rate, rhythm, no edema, no murmur Abdomen/GI: Soft, normal bowel sounds, non tender, no organomegaly Back: no CVA tenderness, no muscle spasm Extremities/Musculoskelatal: normal capillary refill, no pedal edema Neurologic/Psych: pile trimmer II-XII nml as tested, no motor/sensory deficits, alert, normal mood/affect, oriented x 3 Skin: normal color Lymphatic: no adenopathy Lab data as noted below. ASSESSMENT & PLAN: Patient is a 66 yr female with PMH of major depression/anxiety, asthma, GERD who presented with decreased oral intake, nausea and diarrhea which began one week ago and had not relived with Imodium use prior to admission. GI symptoms are associated with mild headache Assessment and plan: Gastroenteritis: : Likely Viral in origin : Stool for C.diff is negative : Nausea, vomiting, abd pain resolved : DC IV Fluids : Tolerating diet Zofran for nausea, No antibiotics for now Stool culture pending Hypomagnesemia Secondary to GI loses S/P Mg replacement Resolved GERD continue PPI Major Depression Stable Continue home medications Asthma: Stable Continue home medications DVT px SCDs Code Status: FULL CODE Disposition: Plan to discharge home today Vital Signs: Date Time Temp Pulse Resp B/P Pulse Ox O2 Delivery O2 Flow Rate FiO2 10/29/16 08:01 65 128/63 10/29/16 08:00 Room Air 10/29/16 07:45 37.0 68 20 98/60 94 Room Air 10/29/16 00:52 37.1 68 20 130/67 92 Room Air 10/28/16 23:50 Room Air 10/28/16 16:00 Room Air 10/28/16 15:05 36.7 63 18 97/62 95 Room Air
--- NOTE | 2016-10-29 13:12 | Discharge Summary ---
Discharge Summary Admission Date: Oct 27, 2016 at 22:33 Discharge Date: Oct 29, 2016 Discharge Disposition: Home Principal Diagnosis: Viral Gastroenteritis Secondary Diagnoses/Problems: Hypomagnesemia GERD Depression Asthma Procedures: Chest/Abdomen X ray: 1. Stable mild cardiomegaly. No acute process within the chest. 2. Unremarkable bowel gas pattern. No evidence for bowel obstruction. Medication Reconciliation Continued Medications: Albuterol (Proair Hfa) Aers 2 PUFF INH Q4H PRN for WHEEZING Aspirin (Aspirin EC Low Dose) 81 Mg Ectab 81 MG PO QAM for 30 Days Clonazepam (Klonopin) 1 Mg Tab 0.5 MG PO QAM, TAB Clonazepam (Klonopin) 1 Mg Tab 1 MG PO HS, TAB Desloratadine (Clarinex) 5 Mg Tab 5 MG PO QAM, TAB Duloxetine HCl (Cymbalta) 30 Mg Cap 30 MG PO QAM Duloxetine HCl (Cymbalta) 30 Mg Cap 60 MG PO QAM for 30 Days, #30 CAP 5 Refills Fluticasone Prop/Salmeterol (Advair Diskus 250/50 Mcg *) Aerp 1 PUFF INH BID, 0 Refills Lamotrigine (Lamictal) 150 Mg Tab 75 MG PO BID, TAB Levalbuterol Soln (Xopenex 0.63MG/3ML) Nebu 0.63 MG INH QID PRN, 0 Refills Meloxicam (Mobic) 15 Mg Tab 15 MG PO QAM, TAB Metoprolol Succ (Toprol Xl) (Toprol-Xl ) 100 Mg Tabcr 100 MG PO QAM, TAB Montelukast (Singulair *) 10 Mg Tab 10 MG PO QAM, 0 Refills Multiple Vitamin (Multivitamin) 1 Tab Tab 1 TAB PO QAM, TAB Nitroglycerin (Nitrostat) 0.4 Mg/1 Tab Subl 0.4 MG SL Q4 PRN for Chest Pain for 30 Days Oxybutynin Chloride (Ditropan) 5 Mg Tab 5 MG PO DAILY, TAB Pantoprazole Sodium (Protonix) 40 Mg Tab 40 MG PO BID, #30 TAB Admission Information HPI (per Admitting provider): This is a 66 year old female with PMH of major depression/anxiety, asthma, GERD presents with decreased PO intake and nausea/diarrhea - states that this began at 3AM on October 26 - she states that on she has some diarrhea, and took Imodium, it took about 3-4 days for recovery from this diarrhea, and she was doing well until Wednesday, she woke up from sleep due to the diarrhea - she states that associated with this diarrhea was a headache, which is now improving. Was given IVFs in the ER - states she feels much better - but is afraid of going home and having to come back to the hospital. She has been under a lot of stress recently from work; but states her medications for depression and anxiety are working to alleviate her symptoms. Physical Exam (per Admitting): General Appearance: no apparent distress Head: normocephalic, atraumatic Eyes: normal inspection ENT: hearing grossly normal Respiratory/Chest: lungs clear, normal breath sounds, no respiratory distress, no accessory muscle use Cardiovascular: regular rate, rhythm, no edema, no murmur Abdomen/GI: normal bowel sounds, non tender, soft, no organomegaly Back: no CVA tenderness, no muscle spasm Extremities/Musculoskelatal: normal capillary refill, no pedal edema Neurologic/Psych: regional sales engineer II-XII nml as tested, no motor/sensory deficits, alert , normal mood/affect, oriented x 3 Skin: normal color Lymphatic: no adenopathy Hospital Course Patient is a 66 yr female with PMH of major depression/anxiety, asthma, GERD who presented with decreased oral intake, nausea and diarrhea which began one week ago and had not relived with Imodium use prior to admission. GI symptoms are associated with mild headache as well. Patient had X ray of the abdomen which did not show any obstruction. Also stool studies is negative for c.diff. Stool culture is pending at the time of discharge. Patient was diagnosed to have viral gastroenteritis and treated conservatively with IV fluids and diet was advanced as tolerated. Her electrolytes were replaced during the hospital course as well. Patient's symptoms improved and was discharged home in stable condition. Patient was advised to seek immediate medical attention if her symptoms reoccur or worsen. Assessment and plan: Gastroenteritis: : Likely Viral in origin : Stool for C.diff is negative : Nausea, vomiting, abd pain resolved : DC IV Fluids : Tolerating diet Zofran for nausea, No antibiotics for now Stool culture pending Hypomagnesemia Secondary to GI loses S/P Mg replacement Resolved GERD continue PPI Major Depression Stable Continue home medications Asthma: Stable Continue home medications DVT px SCDs Code Status: FULL CODE Disposition: Plan to discharge home today Total time spent on discharge = This includes examination of the patient, discharge planning, medication reconciliation, and communication with other providers. Discharge Instructions Discharge Instructions Admission Reason for Admission: Viral Gastroenteritis Discharge Discharge Diagnosis / Problem: Viral Gastroenteritis Discharge Goals Goal(s): Decrease discomfort, Improve function Activity Recommendations Activity Limitations: resume your previous activity Exercise/Sports Limitations: as tolerated . Instructions / Follow-Up Instructions / Follow-Up Follow up with on 11/05/16 at 10.50am at [facility] Take adequate oral intake to keep yourself hydrated Seek immediate medical attention if your develop any fever or your diarrhea is persistent Current Hospital Diet Patient's current hospital diet: Regular Diet Discharge Diet Recommended Diet: Regular Diet Pending Studies Studies pending at discharge: no Medical Emergencies . Who to Call and When: Medical Emergencies: If at any time you feel your situation is an emergency, please call 911 immediately. . Non-Emergent Contact Non-Emergency issues call your: Primary Care Provider . . "Provider Documentation" section prepared by Rene Huerta. VTE Core Measure Inpt VTE Proph given/why not?: SCD's Additional Copies To Yusef Westbrook M.D.(PRAFUL)
== END 2016-10-29 13:49 | disposition home or self-care (01) ==
LOC: ENRESERV → ENRESERVDT → ENRESERVTM → EDBD 17:44 → C.EDA 17:45 → C.MS2W 22:33
PROVIDERS: ADMIT Family Medicine; ATTEND Internal Medicine
DX: A08.4 Viral intestinal infection, unspecified (principal); E83.42 Hypomagnesemia; K21.9 Gastro-esophageal reflux disease without esophagitis; F32.9 Major depressive disorder, single episode, unspecified; J45.909 Unspecified asthma, uncomplicated; G25.0 Essential tremor; Z79.82 Long term (current) use of aspirin; Z87.891 Personal history of nicotine dependence; Z90.49 Acquired absence of other specified parts of digestive tract; Z90.710 Acquired absence of both cervix and uterus; Z88.0 Allergy status to penicillin; Z88.5 Allergy status to narcotic agent; Z83.3 Family history of diabetes mellitus; Z82.49 Family history of ischemic heart disease and other diseases of the circulatory system

== ENCOUNTER 2018-02-20 22:35 | Inpatient (IN) | payer OTHER ==
[~2018-02-20] VITALS: Ht 170.2 cm; Wt 114.2 kg
[~2018-02-20 22:35] MED LIST changes: -AMB5 PO; -ASPEC81 PO; +ASPI-320 PO; -CLON0.5T3 PO; -DXY100 PO; +LAMO150T PO; -LMC25 PO; -NRV5 PO
[2018-02-20] MEDS ORDERED: LIDOCAINE HCL 2% VISC SOLN 20 ML UDC PO STA (22:52)
[2018-02-20] MEDS ORDERED: ASPIRIN 81 MG CHEW PO STA (22:52)
[2018-02-20] MEDS ORDERED: ALUMINUM/MAGNESIUM SUSP 30 ML UDC PO STA (22:52)
--- NOTE | 2018-02-20 23:21 | DIAGNOSTIC IMAGING REPORT ---
SINGLE VIEW CHEST CLINICAL HISTORY: Atypical chest pain. FINDINGS: An AP, portable, upright chest radiograph is compared to study dated 10/27/2016. Correlation is made with chest CT dated 06/22/2015. The examination is degraded by portable technique and patient rotation. The heart is enlarged. The pulmonary vasculature is noncongested. Chronic interstitial thickening is similar to previous. There is minimal basilar atelectasis. No airspace consolidation or large pleural effusion is identified. No pneumothorax is seen. The skeletal structures are osteopenic. The bony thorax is grossly intact. IMPRESSION: Cardiomegaly with no acute cardiopulmonary abnormality. Electronically signed by: Gonzales Kim M.D. 02/20/2018 11:20 PM Dictated Date/Time: 02/20/2018 11:19 PM
[2018-02-20 23:23] LABS: BASO % 0.2 %; BASO ABS # 0.01 K/uL (0-0.2); EOS % 0.6 %; EOS ABS # 0.04 K/uL (0-0.5); HEMATOCRIT 37.3 % (37-47); HEMOGLOBIN 12.6 g/dL (12.0-16.0); IG# 0.02 K/uL (0.00-0.02); LYMPH % 8.8 %; LYMPH ABS # 0.58 K/uL (1.2-3.4); MEAN CELL VOLUME 92.6 fL (80-100); MEAN CORPUSCULAR HEMOGLOBIN 31.3 pg (25-34); MEAN CORPUSCULAR HGB CONC 33.8 g/dl (32-36); MEAN PLATELET VOLUME 8.1 fL (7.4-10.4); MONO % 4.1 %; MONO ABS # 0.27 K/uL (0.11-0.59); NEUT ABS # 5.68 K/uL (1.4-6.5); PLATELET COUNT 168 K/uL (130-400); RED CELL DISTRIBUTION WIDTH SD 44.1 fL (36.4-46.3)
[2018-02-20] MEDS ORDERED: ASPI81TA28 PO (23:23)
[2018-02-20 23:43] LABS: ALBUMIN 3.4 gm/dl (3.4-5.0); ALT/SGPT 26 U/L (12-78); AST/SGOT 21 U/L (15-37); BLOOD UREA NITROGEN 17 mg/dl (7-18); CALCIUM 8.4 mg/dl (8.5-10.1); CARBON DIOXIDE 25 mmol/L (21-32); CREATININE 0.86 mg/dl (0.60-1.20); GLUCOSE 111 mg/dl (70-99); LIPASE 281 U/L (73-393); POTASSIUM 3.7 mmol/L (3.5-5.1); SODIUM 137 mmol/L (136-145)
[2018-02-20 23:48] LABS: ALKALINE PHOSPHATASE 89 U/L (45-117)
[2018-02-20] MEDS ORDERED: ONDANSETRON INJ 2 MG/ML 2 ML VIAL IV STA (23:49)
[2018-02-21] VITALS (11 sets, daily range): BP systolic 94–135; BP diastolic 48–82; PULSE 62–65; TEMP 36.7–37; O2SAT 91–96; Ht 170.2 cm; Wt 114.2 kg
[2018-02-21] MEDS ORDERED: OPTIRAY 320 IV PRN (01:15)
--- NOTE | 2018-02-21 01:20 | EMERGENCY ROOM VISIT NOTE ---
ED Visit Note First contact with patient: 22:45 I did evaluate and examine this patient myself. I did guide management for the patient. I agree with the PA's assessment as discussed. Please see the PAs dictation for further details. I did independently review the CT scan and blood work. The patient is presenting with left-sided chest pain. Her CAT scan did not show signs of pulmonary embolism. The hospitalist was consulted for further evaluation.
--- NOTE | 2018-02-21 01:57 | EMERGENCY ROOM VISIT NOTE ---
History First contact with patient: 22:45 Chief Complaint: CHEST PAIN Stated Complaint: ACID REFLUX, CHEST PAIN, HEADACHE, NAUSEA, PAIN Nursing Triage Summary: Left sided chest pain that resolved after taking nitrostat. Pt also c/o belching and reflux. History of Present Illness The patient is a 67 year old female who presents to the Emergency Room with complaints of left-sided chest pain that went to her back described as discomfort, ranging in severity was 5 out of 10 but has resolved after taking her nitroglycerin. Patient also complains of reflux currently. She complains of belching and sour taste in her mouth. Patient takes a PPI daily. She states this was to take twice a day but her insurance will not cover for it. Patient is here on vacation. She used to live here. She is traveling from an [place]. She has traveled recently. No history of blood clots. Patient denies exertional chest pain, diaphoresis, abdominal pain, new leg pain or swelling, jaw pain, neck pain, arm pain, numbness, tingling. No prior heart attack. Patient denies blood pressure, cholesterol, diabetes. She does not currently smoke but has smoked in the past. Unknown family history. Review of Systems An 10 system review of systems was completed with positives and pertinent negatives listed in the HPI. Past Medical/Surgical History Medical Problems: (1) Asthma (2) Depression (3) GERD (gastroesophageal reflux disease) (4) Hereditary essential tremor (5) Viral gastroenteritis Surgical Problems: (1) H/O esophagogastroduodenoscopy (2) H/O foot surgery (3) H/O shoulder surgery (4) H/O thumb surgery (5) History of knee surgery (6) S/P cholecystectomy (7) S/P hysterectomy Family History Diabetes mellitus MOTHER BROTHER SISTER FH: cancer FATHER Heart disease MOTHER BROTHER Social History Smoking Status: Never Smoker Drug Use: none Marital Status: single Occupation Status: employed Current/Historical Medications Scheduled Aspirin (Aspirin Ec), 81 MG PO DAILY Clonazepam (Klonopin), 5 MG PO QAM Clonazepam (Klonopin), 10 MG PO HS Desloratadine (Clarinex), 5 MG PO QAM Duloxetine HCl (Cymbalta), 60 MG PO HS Duloxetine HCl (Cymbalta), 60 MG PO QAM Lamotrigine (Lamictal), 150 MG PO QAM Levalbuterol Soln (Xopenex 0.63MG/3ML), 0.63 MG INH QID PRN Meloxicam (Mobic), 15 MG PO QAM Metoprolol Succ (Toprol Xl) (Toprol-Xl ), 100 MG PO QAM Montelukast (Singulair *), 10 MG PO QAM Oxybutynin Chloride (Ditropan), 2.5 MG PO DAILY Pantoprazole Sodium (Protonix), 40 MG PO QAM Scheduled PRN Albuterol (Proair Hfa), 2 PUFF INH Q4H PRN for WHEEZING Nitroglycerin (Nitrostat), 0.4 MG SL Q4 PRN for Chest Pain Physical Exam Vital Signs Date Time Temp Pulse Resp B/P (MAP) Pulse Ox O2 Delivery O2 Flow Rate FiO2 02/21/18 00:26 70 20 130/56 99 Room Air 02/20/18 23:34 95 Room Air 02/20/18 23:30 Room Air 02/20/18 22:56 72 02/20/18 22:39 37.3 74 20 118/70 93 Room Air Physical Exam VITALS: Vitals are noted on the nurse's note and reviewed by myself. Vital signs stable. GENERAL: Pleasant female, in no acute distress, nondiaphoretic, well-developed well-nourished. SKIN: The skin was without rashes, erythema, edema, or bruising. There is no tenting of the skin. Capillary reflex less than 2 seconds. HEAD: Normocephalic atraumatic. EARS: External auditory canals clear, tympanic membranes pearly villalobos without erythema or effusion bilaterally. EYES: Pupils equal round and reactive to light and accommodation. Conjunctivae without injection, sclerae without icterus. Extraocular movements intact. NOSE: Patent, turbinates without inflammation or discharge. MOUTH: Mucous membranes moist. Pharynx without erythema or exudate. Uvula midline. Airway patent. Tongue does not deviate. NECK: Supple without nuchal rigidity. No lymphadenopathy. No thyromegaly. Cervical spine is nontender. No JVD. HEART: Regular rate and rhythm chest nontender to palpation LUNGS: Clear to auscultation bilaterally without wheezes, rales or rhonchi. No retractions or accessory muscle use. ABDOMEN: Positive bowel sounds x 4. Normal tympanic percussion. Soft, nontender, without masses or organomegaly. Barr sign negative. No guarding or rebound tenderness. No CVA tenderness MUSCULOSKELETAL: No muscle atrophy, erythema, noted. NEURO: Patient was alert and oriented to person place and time. Normal sensation to light and sharp touch. No focal neurological deficits. Medical Decision & Procedures Laboratory Results 02/20/18 23:15 Red Blood Count 4.03, Mean Corpuscular Volume 92.6, Mean Corpuscular Hemoglobin 31.3, Mean Corpuscular Hemoglobin Concent 33.8, Mean Platelet Volume 8.1, Neutrophils (%) (Auto) 86.0, Lymphocytes (%) (Auto) 8.8, Monocytes (%) (Auto) 4.1, Eosinophils (%) (Auto) 0.6, Basophils (%) (Auto) 0.2, Neutrophils # (Auto) 5.68, Lymphocytes # (Auto) 0.58, Monocytes # (Auto) 0.27, Eosinophils # (Auto) 0.04, Basophils # (Auto) 0.01 02/20/18 23:15 Test 02/20/18 23:15 White Blood Count 6.60 K/uL (4.8-10.8) Red Blood Count 4.03 M/uL (4.2-5.4) Hemoglobin 12.6 g/dL (12.0-16.0) Hematocrit 37.3 % (37-47) Mean Corpuscular Volume 92.6 fL (80-100) Mean Corpuscular Hemoglobin 31.3 pg (25-34) Mean Corpuscular Hemoglobin Concent 33.8 g/dl (32-36) Platelet Count 168 K/uL (130-400) Mean Platelet Volume 8.1 fL (7.4-10.4) Neutrophils (%) (Auto) 86.0 % Lymphocytes (%) (Auto) 8.8 % Monocytes (%) (Auto) 4.1 % Eosinophils (%) (Auto) 0.6 % Basophils (%) (Auto) 0.2 % Neutrophils # (Auto) 5.68 K/uL (1.4-6.5) Lymphocytes # (Auto) 0.58 K/uL (1.2-3.4) Monocytes # (Auto) 0.27 K/uL (0.11-0.59) Eosinophils # (Auto) 0.04 K/uL (0-0.5) Basophils # (Auto) 0.01 K/uL (0-0.2) RDW Standard Deviation 44.1 fL (36.4-46.3) RDW Coefficient of Variation 13.0 % (11.5-14.5) Immature Granulocyte % (Auto) 0.3 % Immature Granulocyte # (Auto) 0.02 K/uL (0.00-0.02) D-Dimer 1300 ug/L FEU (0-500) Anion Gap 9.0 mmol/L (3-11) Est Creatinine Clear Calc Drug Dose 83.9 ml/min Estimated GFR () 81.6 Estimated GFR (Non- 70.4 BUN/Creatinine Ratio 20.0 (10-20) Calcium Level 8.4 mg/dl (8.5-10.1) Total Bilirubin 0.4 mg/dl (0.2-1) Direct Bilirubin 0.2 mg/dl (0-0.2) Aspartate Amino Transf (AST/SGOT) 21 U/L (15-37) Alanine Aminotransferase (ALT/SGPT) 26 U/L (12-78) Alkaline Phosphatase 89 U/L (45-117) Troponin I < 0.015 ng/ml (0-0.045) Total Protein 7.0 gm/dl (6.4-8.2) Albumin 3.4 gm/dl (3.4-5.0) Lipase 281 U/L (73-393) Medications Administered Medications (Trade) Dose Ordered Sig/Ember Route Start Time Stop Time Status Last Admin Dose Admin Lidocaine HCl (Viscous Lidocaine 2% Soln) 10 ml NOW STAT PO 02/20/18 22:52 02/20/18 22:56 DC 02/20/18 23:22 10 ML Al Hydroxide/Mg Hydroxide (Maalox Susp) 30 ml NOW STAT PO 02/20/18 22:52 02/20/18 22:56 DC 02/20/18 23:22 30 ML Aspirin (Aspirin Chew) 324 mg NOW STAT PO 02/20/18 22:52 02/20/18 22:56 DC 02/20/18 23:22 324 MG Ondansetron HCl (Zofran Inj) 4 mg NOW STAT IV 02/20/18 23:49 02/20/18 23:50 DC 02/21/18 00:26 4 MG ED Course Prior records/ancillary studies reviewed. Triage Nursing notes reviewed. Additional history obtained from family and friends. The patient's history was concerning for chest pain. Differential diagnosis: Etiologies such as cardiac ischemia, aortic dissection, pulmonary embolism, pneumonia, pneumothorax, musculoskeletal, infections, pericarditis, myocarditis , esophageal rupture, gastrointestinal, as well as others were entertained. Physical examination: As above. ER treatment provided: Aspirin, GI cocktail On reassessment the patient felt better. Diagnostic interpretation by me: The electrocardiogram was normal sinus, normal intervals, T-wave inversions in V1 through V3, T-wave flattening in V4 through V6. Rate of 70. First-degree AV block. EKG compared to prior EKG with new T-wave flattenings in the lateral leads. Impression normal sinus rhythm with a first-degree AV block with new T- wave changes in the anterior lateral septal leads interpreted by myself The labs revealed elevated d-dimer and patient was sent for CTA. Negative troponin Imaging studies: Chest x-ray with no acute consolidation, pneumothorax free of my interpretation CTA negative for PE per stat radiology Consultation: A consultation was placed with the hospitalist, Dr Lebalnc. The case was discussed and diagnostics were reviewed. The patient was evaluated in the ER for further treatment. HEART SCORE: Hx: high/mod/low suspicion: 2 ECG: ST depression/nonspecific changes/normal: 1 Age: Greater than 65/45-64/less than 45: 2 Risk factors: (Hypertension, hyperlipidemia, diabetes, coronary disease, tobacco use, cocaine use): 1 Troponin: Greater than 2 times normal limits/1-2 times normal limits/normal: 0 Total: 6 Exam and history seem consistent with chest pain with concerns for cardiac in etiology. Patient's heart score is elevated. She has had no recent heart testing. Patient will be evaluated medicine for possible admission. Patient took nitroglycerin and this relieved her chest pain. She was given aspirin in the ER. She agrees to treatment plan of possible admission. By the evaluation outlined above emergent etiologies such as aortic dissection, pulmonary embolism , pneumonia, pneumothorax, infections, pericarditis, myocarditis, gastrointestinal, as well as others were deemed relatively unlikely. The pt informed about the findings as listed above. All questions were answered and pleased with the treatment. Case reviewed with my attending The chart was completed utilizing [employer] Speech voice recognition software. Grammatical errors, random word insertions, pronoun errors, and incomplete sentences are an occassional consequence of this system due to software limitations, ambient noise, and hardware issues. Any formal questions or concerns about the content, text, or information contained within the body of this dictation should be directly addressed to the physician assistant casino shift manager for clarification. Medical Decision As above Medication Reconcilliation Current Medication List: was personally reviewed by me Blood Pressure Screening Patient's blood pressure: Normal blood pressure Impression Primary Impression: Substernal precordial chest pain Departure Information Dispostion Being Evaluated By Hospitalist Condition GOOD Referrals No Doctor, Assigned (PCP) Patient Instructions My [facility]
[2018-02-21] MEDS ORDERED: MoRPHine SULFATE 2 MG/ML CARP IV PRN (02:15)
[2018-02-21] MEDS ORDERED: ONDANSETRON INJ 2 MG/ML 2 ML VIAL IV PRN (02:15)
[2018-02-21] MEDS ORDERED: ALUMINUM/MAGNESIUM/SIMETH (MAALOX MAX) 30 ML UDC PO PRN (02:15)
[2018-02-21] MEDS ORDERED: ALBUTEROL HFA 8 GM INHALER INH PRN (02:15)
[2018-02-21] MEDS ORDERED: LEVALBUTEROL 0.63MG/3 ML NEB INH PRN (02:15)
[2018-02-21] MEDS ORDERED: NITROGLYCERIN 0.4 MG SL PER TAB CHARGE SL PRN ×2 (02:15)
[2018-02-21] MEDS ORDERED: KLN5 PO (02:25)
[2018-02-21] MEDS ORDERED: KLN1X PO (02:25)
[2018-02-21] MEDS: SODIUM CHLORIDE 0.9% 1000ML 1,000 ML IV SCH ×2 (04:10→15:50)
--- NOTE | 2018-02-21 04:13 | HISTORY & PHYSICAL EXAMINATION ---
DATE OF ADMISSION: 02/21/2018 CHIEF COMPLAINT: Chest pain. HISTORY OF PRESENT ILLNESS: This is a 67-year-old female with past medical history significant for anxiety, insomnia, essential tremor, irritable bowel syndrome, osteoarthritis of multiple sites, asthma, history of tobacco abuse, major depression, dysphagia, esophageal diverticulum, GERD, overactive bladder, history of bronchitis, and history of obesity, presents with not feeling well and chest pain. Patient moved away from [place] about a year ago, currently living at [place]. She came to visit [place]. Since today morning, she was not feeling well, had headaches, nausea and some vomiting and several episodes of diarrhea and later she developed chest pain which prompted her to come to the ER. She took nitro at home that did not help, but currently the chest pain has gone by itself and nausea is better, but still is feeling weak and tired. Denies any dizziness, no blurred visions, no earache, no runny nose, no sore throat, no cough. Normal bladder movements. No bloody micturition. No blood in the urine or blood in the stools. No skin rash. Patient says she is to follow up with GI here and she has a history of esophageal diverticulum. She vomited a couple of walnuts the other day. She has an appointment with GI next week in [place] .Patient says she has a flight to [place] on Wednesday and would like to get discharged tomorrow if she is doing okay. ALLERGIES: CODEINE, PENICILLINS. PAST MEDICAL HISTORY: As mentioned above. PAST SURGICAL HISTORY: Right total knee arthroplasty, history of cardiac catheterization, EGDs, right knee arthroscopy, left thumb surgery for tendonitis, removal of growth in foot, rotator cuff repair on the left side, total hysterectomy with removal of tubes. MEDICATIONS: Patient is on aspirin 81 mg p.o. daily, Klonopin 0.5 mg in a.m. and 1 mg at nighttime, Cymbalta 60 mg p.o. at bedtime, lamotrigine 150 mg p.o. daily, albuterol 2 puffs every 4 hours p.r.n., Xopenex 0.3 mg inhalation q.i.d. p.r.n., Toprol-XL 100 mg p.o. q.a.m., Meloxicam 15 mg p.o. q.a.m., Singulair 10 mg p.o. q.a.m., nitroglycerin 0.4 mg sublingual p.r.n., Ditropan 2.5 mg p.o. daily, Protonix 40 mg p.o. in a.m. FAMILY HISTORY: Significant for mother had arthritis, diabetes, CHF, hypertension. Father has lung disorder, prostate cancer, glaucoma, ear problems. SOCIAL HISTORY: Former smoker, quit in 1997. Prior to that, smoked 2-1/2 packs a day for 21 years. No alcohol use, no drug use. REVIEW OF SYMPTOMS: As per HPI. Rest of review of symptoms negative. PHYSICAL EXAMINATION: GENERAL: Patient is obese, not in distress. VITAL SIGNS: Temperature 37.3, pulse 64, respiratory rate 20, blood pressure 107/58, oxygen 98% on room air. HEENT: No pallor, no icterus. Pupils equal, round, and reactive to light. NECK: No JVD, no neck masses, no carotid bruits. CARDIOVASCULAR: S1, S2, regular rate and rhythm, no murmur, no gallop. RESPIRATORY SYSTEM: Clear to auscultation bilaterally. No wheezing, no crackles. ABDOMEN: Soft, bowel sounds present. Nontender. No distention. CENTRAL NERVOUS SYSTEM: Cranial nerves II-XII grossly intact. Nonfocal. EXTREMITIES: Lower extremity, trace pedal edema present. No erythema seen. LABORATORY DATA: WBC 6.6, hemoglobin 12.6, hematocrit 37.3, platelets 168. Sodium 137, potassium 3.7, chloride 103, bicarb 25, BUN 17, creatinine 0.8, serum glucose 111, calcium 8.4, total bilirubin 0.4, direct bilirubin 0.2, AST 21, ALT 26, alkaline phosphatase 89. Troponin I less than 0.015. Lipase 281. D-dimer 1300. IMAGING DATA: Chest x-ray, cardiomegaly with no acute cardiopulmonary abnormality seen. CT of the chest, unofficial report, no PE. EKG: Normal sinus rhythm with a rate of 70, first-degree AV block. No significant change from previous EKG. ASSESSMENT AND PLAN: This is a 67-year-old female who presents with generalized weakness, gastroenteritis, and chest pain. 1. Generalized weakness and gastroenteritis with nausea, vomiting, and several episodes of diarrhea. We will check the stool sample for stool cultures and stool for C. diff . Start on intravenous fluids and monitor. 2. History of chest pain. Patient has history of chest pains in the past and patient had cardiac catheterization in [address] elevation in the inferior leads. Her cardiac cath was normal and the chest pain was thought to be from anxiety and stress. EKG is unremarkable. Troponin is negative. We will observe on tele floor. Serial cardiac enzymes, echo, and consult cardiology for further recommendation in the a.m. 3. History of dysphagia. Patient has history of esophageal diverticulum. She is to follow with GI while she is was living in [place]. She is supposed to follow with GI next week in [place] where currently she is residing. Patient is okay to be seen and evaluated by GI in the a.m. 4. History of anxiety and depression. Continue the home medications of Klonopin, Zoloft, and Lamictal. 5. History of hypertension. Continue Toprol-XL. We will monitor the blood pressure. 6. History of asthma, history of tobacco use disorder. Continue home inhalers. 7. History of overactive bladder. Continue Ditropan. 8. Deep venous thrombosis prophylaxis, SCDs for now. DISPOSITION: Observe in tele floor. Expect to discharge home and follow with the family doctor. Level 1 full code. MTDD
[2018-02-21] MEDS: CLONAZEPAM 0.5 MG TAB PO SCH (06:12)
[2018-02-21 06:14] LABS: BASO % 0.2 %; BASO ABS # 0.01 K/uL (0-0.2); EOS % 0.5 %; EOS ABS # 0.03 K/uL (0-0.5); HEMATOCRIT 36.7 % (37-47); HEMOGLOBIN 12.4 g/dL (12.0-16.0); IG# 0.02 K/uL (0.00-0.02); LYMPH % 15.7 %; LYMPH ABS # 0.88 K/uL (1.2-3.4); MEAN CELL VOLUME 93.4 fL (80-100); MEAN CORPUSCULAR HEMOGLOBIN 31.6 pg (25-34); MEAN CORPUSCULAR HGB CONC 33.8 g/dl (32-36); MEAN PLATELET VOLUME 8.2 fL (7.4-10.4); MONO % 6.3 %; MONO ABS # 0.35 K/uL (0.11-0.59); NEUT % 76.9 %; PLATELET COUNT 160 K/uL (130-400); RED CELL DISTRIBUTION WIDTH CV 13.2 % (11.5-14.5); RED CELL DISTRIBUTION WIDTH SD 45.4 fL (36.4-46.3); WHITE BLOOD COUNT 5.59 K/uL (4.8-10.8)
[2018-02-21 06:40] LABS: BLOOD UREA NITROGEN 17 mg/dl (7-18); CALCIUM 8.1 mg/dl (8.5-10.1); CARBON DIOXIDE 28 mmol/L (21-32); CHOLESTEROL 137 mg/dl (0-200); CREATININE 0.86 mg/dl (0.60-1.20); GLUCOSE 97 mg/dl (70-99); POTASSIUM 3.6 mmol/L (3.5-5.1); SODIUM 138 mmol/L (136-145)
[2018-02-21 06:45] LABS: CKMB 0.7 ng/ml (0.5-3.6); LDL CHOLESTEROL CALCULATED 65 mg/dl
[2018-02-21] MEDS ORDERED: IV FLUIDS COMPLETED PRN (06:45)
[2018-02-21] MEDS ORDERED: PERFLUTREN LIPID MICROSPHERE (DEFINITY) IV ONE (06:59)
--- NOTE | 2018-02-21 07:19 | DIAGNOSTIC IMAGING REPORT ---
(CHEST FOR PE) ANGIO WITH CLINICAL HISTORY: 67 years-old Female presenting with ^cp, recent travel, +ddimer, ? PE. TECHNIQUE: Multidetector CT angiography of the chest was performed after administration of intravenous contrast. 3-D volumetric and/or maximum intensity projection (MIP) images were subsequently reconstructed for review. IV contrast: 91 mL of Optiray 320. A dose lowering technique was used consistent with the principles of ALARA (as low as reasonably achievable). COMPARISON: 06/22/2015. CT DOSE (mGy.cm): The estimated cumulative dose is 512.83 mGy.cm. FINDINGS: Elevated Work Platform Operator topogram: Cholecystectomy clips noted. Pulmonary vasculature: The study is suboptimal for the assessment of the pulmonary vascular tree secondary to timing of the contrast bolus and respiratory motion artifact. Allowing for limited image quality, no central filling defect to suggest pulmonary embolus. Main pulmonary artery is not enlarged. No flattening of the interventricular septum. No intracardiac filling defect. No reflux of contrast into the hepatic veins. Remaining chest: On soft tissue windows, normal thyroid and thoracic inlet. Calcified right hilar and mediastinal lymph nodes likely indicate prior granulomatous infection. No axillary, supraclavicular, hilar, or mediastinal lymphadenopathy. Normal aorta. Top normal heart size. No pericardial or pleural effusion. Calcified granuloma the in the spleen likely indicates prior granulomatous infection. Small hiatal hernia. Suggestion of hepatic steatosis. On lung windows, allowing for extensive respiratory motion artifact, redemonstration of the solid 4 mm nodule at the left apex (series 4 image 204), stable to minimally enlarged. Calcified granuloma noted at the right lung base. Solid peripheral 3 mm nodule in the left lower lobe (series 4 image 106). It is difficult to assess if this is new as image quality in this region was degraded by motion artifact on prior imaging. Mosaic attenuation on the current study likely indicates small airways disease. Central airways patent. On bone windows, degenerative changes of the spine. Postsurgical changes of the left humeral head suspected. IMPRESSION: 1. Allowing for suboptimal image quality, no evidence of pulmonary embolus. 2. Two solid pulmonary nodules, the largest at the left apex measuring 4 mm. This is stable to minimally enlarged since 2015 suggesting benignity. The additional nodule present and may be new from prior. Follow-up per Ed Society 2017 recommendations below. 3. Evidence of prior granulomatous infection. Please refer to below summary of Fleischner Society 2017 recommendations for follow-up of incidental CT nodules (H Dima et al. Guidelines for management of incidental pulmonary nodules detected on CT images: From the Fleischner Society 2017. Radiology 2017; 284: 228-243.) SOLID NODULES Single nodule; size < 6 mm * Low risk patients: No routine follow-up * High risk patients: Optional CT at 12 months Single nodule; size 6-8 mm * Low risk patients: CT at 6-12 months, then consider CT at 18-24 months * High risk patients: CT at 6-12 months, then at 18-24 months Single nodule; size > 8 mm * Either low or high risk patients: Considered CT at 3 months, PET/CT, or tissue sampling Multiple nodules; size < 6 mm * Low risk patients: No routine follow up * High risk patients: Optional CT at 12 months Multiple nodules; size 6-8 mm * Low risk patients: CT at 3-6 months, then consider CT at 18-24 months * High risk patients: CT at 3-6 months, then at 18-24 months Multiple nodules; size > 8 mm * Low risk patients: CT at 3-6 months, then consider at 18-24 months * High risk patients: CT at 3-6 months, then at 18-24 months SUBSOLID NODULES Single ground-glass nodule * Nodule size < 6 mm: No routine follow-up * Nodule size > or = 6 mm: CT at 6-12 months to confirm persistence, then CT every 2 years until 5 years Single part-solid nodule * Nodule size < 6 mm: No routine follow-up * Nodules size > or = 6 mm: CT at 3-6 months to confirm persistence. If unchanged and solid component remains < 6 mm, annual CT should be performed for 5 years Multiple nodules * Nodule size < 6 mm: CT at 3-6 months. If stable, consider CT at 2 and 4 years. * Nodules size > or = 6 mm: CT at 3-6 months. Subsequent management based on the most suspicious nodule(s) NOTE: 1) These guidelines apply to incidental nodules. These guidelines do NOT apply to patients younger than 35 years, immunocompromised patients, or patients with cancer. 2) Risk categories: * Low risk patients: Minimal or absent history of smoking and/or other known risk factors * High risk patients: History of smoking, exposure to other carcinogens, emphysema, fibrosis, upper lobe location, family history of lung cancer, etc. 3) If a nodule up to 8 mm is partly solid or is ground glass, further follow-up is required after 24 months to exclude possible slow growing adenocarcinoma. Electronically signed by: Raheel Rodriguez M.D. 02/21/2018 7:17 AM Dictated Date/Time: 02/21/2018 6:59 AM
[2018-02-21] MEDS: OXYBUTYNIN CHLORIDE 5 MG TAB PO SCH (08:49)
[2018-02-21] MEDS: PANTOprazole SOD 40 MG TAB PO SCH (08:49)
[2018-02-21] MEDS: DULOXETINE (CYMBALTA) 30 MG CAP PO SCH (08:50)
[2018-02-21] MEDS: MONTELUKAST SOD 10 MG TAB PO SCH (08:50)
[2018-02-21] MEDS: ASPIRIN 81 MG ECTAB PO SCH (08:50)
[2018-02-21] MEDS: METOPROLOL SUCC 50MG EXT REL TAB PO SCH (08:55)
[2018-02-21] MEDS ORDERED: CLONAZEPAM 1 MG TAB PO SCH (09:00)
--- NOTE | 2018-02-21 09:00 | ECHOCARDIOGRAM REPORT ---
*NOTICE TO RECEIVING [employer] This information is strictly Confidential and protected under [place] law. [place] law prohibits you from making any further disclosure of this information unless further disclosure is expressly permitted by the written consent of the person to whom it pertains or is authorized by law. A general authorization for the release of medical or other information is not sufficient for this purpose. Hospital accepts no responsibility if the information is made available to any other person, INCLUDING THE PATIENT. Interpretation Summary * Name: LEANNE HIGGINS Study Date: 02/21/2018 06:31 AM BP: 112/71 mmHg * Patient Location: [facility]\S\N283\S\1 HR: 63 * : 1950 (M/d/yyyy) Gender: Female Height: 67 in * Age: 67 yrs Ethnicity: CA Weight: 251 lb * Ordering Physician: Remi Leblanc * Referring Physician: Self, Referred * Performed By: Madison Howard RDCS * * Reason For Study: Chest Pain * BSA: 2.2 m2 * -- Conclusions -- * No significant change compared to previous study of 01/03/16. * Normal LV chamber size with mild concentric LVH. * Normal LV systolic function, EF 60-65%. * No segmental left ventricular wall motion abnormalities are noted. * Grade I diastolic dysfunction. * No significant valvular pathology. Procedure Details * A complete two-dimensional transthoracic echocardiogram was performed (2D, M-mode, Doppler and color flow Doppler). * The study was technically difficult. * The study was technically difficult, but visualization was adequate with the administration of Definity ultrasound contrast. * There were technical limitations due to patient'sbody habitus * A contrast injection of Definity was performed to improve assessment of LV function. * Contrast was injected into an intravenous site in the right arm. * One vial of Definity ultrasound contrast was diluted in normal saline to a total volume of 10 ml. A total of '2' ml of solution was administered during imaging. * Lot # [id number] of Definity utilized for procedure. * Expiration date EB. * The attending nurse who injected the contrast agent was Kate Nunez RN. Left Ventricle * The left ventricle is normal in size. * There is mild concentric left ventricular hypertrophy. * Ejection Fraction = 60-65%. * Left ventricular systolic function is normal. * No segmental left ventricular wall motion abnormalities are noted. * The left ventricular wall motion is normal. Right Ventricle * The right ventricular cavity size is normal (basal dimension <4.2 cm in right ventricular apical 4-chamber view). * The right ventricular systolic function is normal as assessed by tricuspid annular plane systolic excursion (TAPSE) (normal >1.5 cm). Atria * The left atrium is mildly dilated. * Right atrial size is normal. * No ASD detected; PFO is not assessed. Mitral Valve * The mitral valve is normal in structure and function. Tricuspid Valve * The tricuspid valve is normal in structure and function. Aortic Valve * The aortic valve is normal in structure and function. Pulmonic Valve * The pulmonary valve is not well seen, but the Doppler examination is normal without significant regurgitation or stenosis. Great Vessels * The aortic root is normal size. Pericardium/Pleural * There is no pericardial effusion. Left Ventricular Diastolic Function * Grade I diastolic dysfunction, (abnormal relaxation pattern). MMode 2D Measurements and Calculations IVSd 1.2 cm IVSs 1.5 cm LVIDd 4.9 cm LVIDs 2.7 cm LVPWd 1.2 cm LVPWs 1.5 cm IVS/LVPW 0.96 FS 45.4 % EDV(Teich) 113.3 ml ESV(Teich) 26.5 ml EF(Teich) 76.6 % EDV(cubed) 118.3 ml ESV(cubed) 19.2 ml EF(cubed) 83.7 % % IVS thick 23.6 % % LVPW thick 26.2 % LV mass(C)d 226.8 grams LV mass(C)dI 101.9 grams/m\S\2 LV mass(C)s 136.7 grams LV mass(C)sI 61.4 grams/m\S\2 SV(Teich) 86.8 ml SI(Teich) 39.0 ml/m\S\2 SV(cubed) 99.1 ml SI(cubed) 44.5 ml/m\S\2 Ao root diam 3.1 cm Ao root area 7.4 cm\S\2 ACS 2.1 cm LA dimension 4.5 cm LA/Ao 1.4 LVAd ap4 21.3 cm\S\2 LVLd ap4 6.4 cm EDV(MOD-sp4) 61.6 ml EDV(sp4-el) 60.0 ml LVAs ap4 13.0 cm\S\2 LVLs ap4 5.6 cm ESV(MOD-sp4) 26.0 ml ESV(sp4-el) 25.5 ml EF(MOD-sp4) 57.8 % EF(sp4-el) 57.5 % LVAd ap2 20.3 cm\S\2 LVLd ap2 7.1 cm EDV(MOD-sp2) 53.1 ml EDV(sp2-el) 49.5 ml LVAs ap2 12.5 cm\S\2 LVLs ap2 6.5 cm ESV(MOD-sp2) 22.7 ml ESV(sp2-el) 20.3 ml EF(MOD-sp2) 57.2 % EF(sp2-el) 59.1 % LVLd %diff 9.7 % EDV(MOD-bp) 59.8 ml LVLs %diff 13.9 % ESV(MOD-bp) 25.8 ml EF(MOD-bp) 56.8 % SV(MOD-sp4) 35.6 ml SI(MOD-sp4) 16.0 ml/m\S\2 SV(MOD-sp2) 30.4 ml SI(MOD-sp2) 13.6 ml/m\S\2 SV(MOD-bp) 34.0 ml SI(MOD-bp) 15.2 ml/m\S\2 SV(sp4-el) 34.5 ml SI(sp4-el) 15.5 ml/m\S\2 SV(sp2-el) 29.2 ml SI(sp2-el) 13.1 ml/m\S\2 Doppler Measurements and Calculations MV E max clara 77.8 cm/sec MV A max clara 68.8 cm/sec MV E/A 1.1 MV dec time 0.26 sec Ao V2 max 166.5 cm/sec Ao max PG 11.1 mmHg Ao max PG (full) 4.8 mmHg LV V1 max PG 6.2 mmHg LV V1 max 124.9 cm/sec PA V2 max 104.0 cm/sec PA max PG 4.3 mmHg TR max clara 245.9 cm/sec
[2018-02-21 11:00] LABS: CKMB < 0.5 ng/ml (0.5-3.6)
--- NOTE | 2018-02-21 11:50 | Gastrointestinal Consultation ---
Gastrointestinal Consultation Date of Consultation: Feb 21, 2018 Attending Physician: Farooq Rojas Consulting Physician: Hemalatha Chanel Reason for Consultation: N/V, dysphagia, hx of esophagus diverticulum History of Present Illness Patient is a 67 year old female who presented to ED yesterday w c/o N/V, DUGAN, diarrhea and chest pain. She had taken Nitro at home but didn't help. She denies any associated SOB, coughing, hematemesis, bloody/tarry stools. [place] weak and tired. She had moved out of [place] to [place]. Returned to visit some friends. Report that she had taken Z-pack for sinusitis in first week of January and noticed stool are more loose & foul smelling since then. She also was told that her friend whom she stayed with this past week had fallen ill w similar symptoms she's currently having. On evaluation labs of CBC, CMP relatively normal. She did have Ddimer elevation. CTA chest w/o signs of PE though she has some pulmonary nodules. CXR showed cardiomegaly but no acute changes. Troponin, EKG yesterday unremarkable. She had Echocardiogram today w/o acute findings as well She had hx of dysphagia symptoms, previously seeing Dr. Flores for management. Had EGD and manometry evals in 2013 and 2015. EGD findings of mild Schatzki's ring and middle 3rd of esophagus diverticulum is present. Manometry study didn't suggest dysmotility. She said her dysphagia symptoms are well controlled w Protonix once daily and also making sure her foods are soft. She did throw up some walnuts yesterday which she believed was in her pie. She would like to try to eat today. Past Medical/Surgical History Medical Problems: (1) Chest pain Status: Acute (2) Diarrhea Status: Acute (3) Hypomagnesemia Status: Acute (4) Nausea Status: Acute (5) Substernal precordial chest pain Status: Acute Past Medical History: Anxiety, insomnia, essential tremor, irritable bowel syndrome, osteoarthritis of multiple sites, asthma, history of tobacco abuse, major depression, dysphagia , esophageal diverticulum, GERD, overactive bladder, history of bronchitis, and history of obesity Past Surgical History: Right total knee arthroplasty, history of cardiac catheterization, EGDs, right knee arthroscopy, left thumb surgery for tendonitis, removal of growth in foot, rotator cuff repair on the left side, total hysterectomy with removal of tubes. Family History Diabetes mellitus MOTHER BROTHER SISTER FH: cancer FATHER Heart disease MOTHER BROTHER Social History Smoking Status: Former Smoker Drug Use: none Marital Status: single Occupation Status: employed Allergies Coded Allergies: Penicillins (Verified Allergy, Mild, rash, 02/20/18) Codeine (Verified Allergy, Unknown, n/v, 02/20/18) Current Medications Home Meds and Scripts Medications Dose Route/Sig Max Daily Dose Days Date Category Clonazepam 1 Mg Tab 1 Mg PO HS 02/21/18 Rx Clonazepam 0.5 Mg Tab 0.5 Mg PO DAILYBB 02/21/18 Rx Aspirin Ec (Aspirin) 81 Mg Tab 81 Mg PO DAILY 02/20/18 Reported Lamictal (Lamotrigine) 150 Mg Tab 150 Mg PO QAM 10/27/16 Reported Nitrostat (Nitroglycerin) 0.4 Mg/1 Tab Subl 0.4 Mg SL Q4 PRN 30 06/23/15 Rx Ditropan (Oxybutynin Chloride) 5 Mg Tab 2.5 Mg PO DAILY 06/22/15 Reported Cymbalta (Duloxetine HCl) 30 Mg Cap 60 Mg PO QAM 30 06/22/15 Reported Proair Hfa (Albuterol) Aers 2 Puff INH Q4H PRN 11/15/14 Reported Toprol-Xl (Metoprolol Succinate) 100 Mg Tabcr 100 Mg PO QAM 11/15/14 Reported Protonix (Pantoprazole Sodium) 40 Mg Tab 40 Mg PO QAM 09/28/12 Reported Clarinex (Desloratadine) 5 Mg Tab 5 Mg PO QAM 09/28/12 Reported Mobic (Meloxicam) 15 Mg Tab 15 Mg PO QAM 09/28/12 Reported Singulair * (Montelukast Sodium) 10 Mg Tab 10 Mg PO QAM 06/17/11 Reported Xopenex 0.63MG/3ML (Levalbuterol) Nebu 0.63 Mg INH QID PRN 07/27/10 Reported Review of Systems Constitutional: + weakness, No fever, No chills Respiratory: No cough, No shortness of breath Cardiac: No chest pain Abdomen: + nausea, + vomiting, + diarrhea, No pain, No GI bleeding Endo: + fatigue Physical Exam Date Time Temp Pulse Resp B/P (MAP) Pulse Ox O2 Delivery O2 Flow Rate FiO2 02/21/18 11:18 36.8 64 18 98/51 (67) 91 Room Air 02/21/18 08:00 93 02/21/18 07:09 37.0 62 18 94/53 (67) 93 Room Air 02/21/18 06:08 36.8 62 18 111/70 (84) 94 Room Air 02/21/18 04:20 37.0 63 18 112/71 Room Air 02/21/18 02:14 64 20 107/58 98 Room Air 02/21/18 00:26 70 20 130/56 99 Room Air 02/20/18 23:34 95 Room Air 02/20/18 23:30 Room Air 02/20/18 22:56 72 02/20/18 22:39 37.3 74 20 118/70 93 Room Air General Appearance: + mild distress (said feeling nauseated and just tired) Neck: supple, no JVD, trachea midline Respiratory/Chest: normal breath sounds, no respiratory distress, no accessory muscle use Cardiovascular: regular rate, rhythm, no gallop, no murmur Abdomen: normal bowel sounds, non tender, soft Extremities: normal inspection, no pedal edema, no calf tenderness Neurologic/Psych: alert, normal mood/affect, oriented x 3 Skin: normal color, no jaundice, no rash Laboratory Results Last 24 Hours Test 02/20/18 23:15 02/21/18 01:56 02/21/18 05:52 02/21/18 10:00 White Blood Count 6.60 K/uL 5.59 K/uL Red Blood Count 4.03 M/uL 3.93 M/uL Hemoglobin 12.6 g/dL 12.4 g/dL Hematocrit 37.3 % 36.7 % Mean Corpuscular Volume 92.6 fL 93.4 fL Mean Corpuscular Hemoglobin 31.3 pg 31.6 pg Mean Corpuscular Hemoglobin Concent 33.8 g/dl 33.8 g/dl Platelet Count 168 K/uL 160 K/uL Mean Platelet Volume 8.1 fL 8.2 fL Neutrophils (%) (Auto) 86.0 % 76.9 % Lymphocytes (%) (Auto) 8.8 % 15.7 % Monocytes (%) (Auto) 4.1 % 6.3 % Eosinophils (%) (Auto) 0.6 % 0.5 % Basophils (%) (Auto) 0.2 % 0.2 % Neutrophils # (Auto) 5.68 K/uL 4.30 K/uL Lymphocytes # (Auto) 0.58 K/uL 0.88 K/uL Monocytes # (Auto) 0.27 K/uL 0.35 K/uL Eosinophils # (Auto) 0.04 K/uL 0.03 K/uL Basophils # (Auto) 0.01 K/uL 0.01 K/uL RDW Standard Deviation 44.1 fL 45.4 fL RDW Coefficient of Variation 13.0 % 13.2 % Immature Granulocyte % (Auto) 0.3 % 0.4 % Immature Granulocyte # (Auto) 0.02 K/uL 0.02 K/uL D-Dimer 1300 ug/L FEU Sodium Level 137 mmol/L 138 mmol/L Potassium Level 3.7 mmol/L 3.6 mmol/L Chloride Level 103 mmol/L 105 mmol/L Carbon Dioxide Level 25 mmol/L 28 mmol/L Anion Gap 9.0 mmol/L 5.0 mmol/L Blood Urea Nitrogen 17 mg/dl 17 mg/dl Creatinine 0.86 mg/dl 0.86 mg/dl Est Creatinine Clear Calc Drug Dose 83.9 ml/min 83.9 ml/min Estimated GFR () 81.6 81.6 Estimated GFR (Non- 70.4 70.4 BUN/Creatinine Ratio 20.0 19.9 Random Glucose 111 mg/dl 97 mg/dl Calcium Level 8.4 mg/dl 8.1 mg/dl Total Bilirubin 0.4 mg/dl Direct Bilirubin 0.2 mg/dl Aspartate Amino Transf (AST/SGOT) 21 U/L Alanine Aminotransferase (ALT/SGPT) 26 U/L Alkaline Phosphatase 89 U/L Troponin I < 0.015 ng/ml < 0.015 ng/ml Total Protein 7.0 gm/dl Albumin 3.4 gm/dl Lipase 281 U/L Bedside Troponin I < 0.030 ng/ml Creatine Kinase MB 0.7 ng/ml Creatine Kinase MB Ratio Triglycerides Level 177 mg/dl Cholesterol Level 137 mg/dl HDL Cholesterol 37 mg/dl LDL Cholesterol, Calculated 65 mg/dl VLDL Cholesterol, Calculated 35 mg/dl Cholesterol/HDL Ratio 3.7 Test 02/21/18 10:18 Creatine Kinase MB < 0.5 ng/ml Troponin I < 0.015 ng/ml Impression Patient is a 67 year old female who presented to ED w weakness, n/v, diarrhea and chest pain symptoms. So far cardiac studies unremarkable. She did have hx of dysphagia, Schatzski's ring, esophageal diverticulum (previously been evaluated w EGD and manometry), though feels that she doesn't have much trouble swallowing since she's been on Protonix and adjusting her food consistency to be soft. Her diarrheal symptoms started after taking Zpack earlier this month, and a friend she's stayed with this past week also has similar symptoms she is currently having. Suspect more infectious symptoms. Plan - Check stool cx, Cdiff - Ok to start [place] diet, advance as tolerated - Protonix 40mg daily - Consider abdominal imaging such as w CT if diarrhea persist and if abd pain starts - No indication to repeat EGD evaluation at this time. She lives in [facility] and said had GI appt next week. Can f/u with GI in outpt setting for further chronic issues if present. I saw and evaluated the patient. We are consulted for evaluation of dysphagia. The patient notes that this is at her baseline and she is due to follow with her regular GI provider next week. The patient also has abdominal discomfort and occasional loose stools. She presented to the hospital yesterday after having chest pain improved with sublingual nitroglycerin of note the patient did have a recent course of azithromycin. Physical examination No obvious distress No scleral icterus Impression: Patient with a history of dysphagia presently at her baseline. She can follow with her regular GI provider to determine if a repeat upper endoscopy still warranted. The patient also has diarrhea and I would suggest that patient have a stool for C diff PCR. She should reflux CV a 14 day course of vancomycin if positive. Please call with any questions or concerns during the remainder of the hospital admission.
[2018-02-21] MEDS: ACETAMINOPHEN 325 MG TAB PO PRN ×2 (15:51→20:58)
--- NOTE | 2018-02-21 18:06 | DIAGNOSTIC IMAGING REPORT ---
VENOUS DOPPLER LWR EXT BILA HISTORY: Pain. Edema. elevated d-dimer COMPARISON STUDY: None. FINDINGS: There is normal compressibility, flow, and augmentation within the bilateral lower extremity deep venous systems. IMPRESSION: No DVT within the right or left lower extremity. The above report was generated using voice recognition software. It may contain grammatical, syntax or spelling errors. Electronically signed by: Jg Hodges M.D. 02/21/2018 6:04 PM Dictated Date/Time: 02/21/2018 6:03 PM
[2018-02-21] MEDS ORDERED: CALCIUM CARBONATE 500 MG CHEWABLE PO PRN (19:00)
--- NOTE | 2018-02-21 19:01 | Progress Note ---
Progress Note Date of Service Feb 21, 2018. Progress Note Admitted early this morning with chest pain, nausea, vomiting, diarrhea. Feels better, but still has nausea. Still on full liquids. OK ruled out. No need for further cardiac evaluation. D-dimer elevated. CTA chest negative for pulmonary embolism. Venous duplex of lower extremities ordered to rule out DVT. Advance diet as tolerated. Check stool for C. difficile if patient has recurrent diarrhea. .
--- NOTE | 2018-02-21 19:10 | CARDIOLOGY CONSULTATION ---
DATE OF CONSULTATION: 02/21/2018 CONSULTATION REQUESTED BY: Dr. Rojas. REASON FOR CONSULTATION: Chest pain. HISTORY OF PRESENT ILLNESS: Ms. Desai is a 67-year-old woman who presented to [facility] on 02/20/2018 with a complaint of chest pain. States that on that morning, she woke up not feeling well with headaches, nausea, vomiting, and diarrhea. As the day went on, she then developed chest discomfort, which she described as a left-sided pressure/sharp stabbing sensation underneath her left breast. She took a sublingual nitroglycerin which if anything made her chest discomfort worse. She denied any associated shortness of breath, diaphoresis, or radiation of the discomfort. She came into the Emergency Department for further evaluation. In the Emergency Department, her EKG and cardiac enzymes were unremarkable and she was admitted to telemetry. She states that the pain has waxed and waned overnight but denies any association with activity or eating. PAST SURGICAL HISTORY: 1. Cardiac catheterization, 2015, showing normal coronary arteries. 2. Right total knee replacement. 3. Multiple upper endoscopies. 4. Thumb surgery. 5. Foot surgery. 6. Rotator cuff repair. 7. Total abdominal hysterectomy. MEDICAL ILLNESSES: 1. GERD. 2. Esophageal diverticulum. 3. Schatzki's ring. 4. History of noncardiac chest pain with normal coronary arteries by cardiac catheterization, 2015. 5. Anxiety. 6. Irritable bowel. 7. Obesity. FAMILY HISTORY: Noncontributory. SOCIAL HISTORY: The patient is a former smoker, quit in 1997. Denies any alcohol or recreational drug use. She currently moved out to [place] to [place] but was back on visiting. REVIEW OF SYSTEMS: As per HPI, all other review of systems reviewed and negative at this time. ALLERGIES: 1. CODEINE. 2. PENICILLIN. MEDICATIONS AN OUTPATIENT: 1. Aspirin 81 mg daily. 2. Toprol-XL 100 mg daily. 3. Ditropan daily. 3. Protonix daily. 4. Meloxicam as needed. 5. b.i.d. 6. Cymbalta daily. 7. Lamotrigine daily. PHYSICAL EXAMINATION: VITALS: Temperature 37, pulse 62, respiratory rate 12, blood pressure 94/53. GENERAL: Awake, alert, oriented x3 in no acute distress. HEENT: Normocephalic, atraumatic. Pupils equal, round, and reactive to light and accommodation. Extraocular muscles intact. Anicteric sclerae. Moist mucous membranes. NECK: No JVD and no bruit. CARDIOVASCULAR: Regular. Positive S4. Normal S1 and S2. No S3. No murmurs or rubs. PULMONARY: Clear to auscultation bilaterally. No rales, rhonchi, or wheezing. ABDOMEN: Bowel sounds x4, soft. No rebound, guarding, tenderness. No organomegaly. EXTREMITIES: No clubbing, cyanosis or edema. +2 pedal pulses bilaterally. SKIN: Warm and dry. TEST RESULTS: 2D echocardiogram was read as no significant change compared to previous study of 01/03/2016. Normal LV chamber size with mild concentric LVH, normal LV systolic function, EF 60-65%, no segmental left ventricular wall motion abnormalities are noted, grade 1 diastolic dysfunction, no significant valvular pathology. Troponin negative x4. A 12-lead EKG performed upon arrival to the Emergency Department independently reviewed at this time shows normal sinus rhythm at 70 beats per minute with first degree AV block, nonspecific inferior and lateral T-wave flattening. No significant change compared to previous studies. IMPRESSION: 1. Chest pain. 2. Extensive esophageal disorders. 3. History of normal coronaries by cardiac catheterization, 2016. RECOMMENDATIONS: Ms. Desai was counseled given the fact that her cardiac enzymes are unremarkable. Her EKG is unchanged and her echocardiogram shows no wall motion abnormalities. I do not believe the chest pain is cardiac in nature and so I do believe it is most likely due to her extensive GI disorders. No further cardiac testing or intervention is necessary at this time. I recommend a GI evaluation. Otherwise, no other medication changes will be made and be okay to discharge the patient from a cardiac standpoint.
[2018-02-21] MEDS: CLONAZEPAM 1 MG TAB PO SCH (20:55)
[2018-02-21] MEDS ORDERED: DULOXETINE (CYMBALTA) 30 MG CAP PO SCH (21:00)
[2018-02-21] MEDS ORDERED: FLUO0.01 TOP (23:39)
[2018-02-21] MEDS ORDERED: FLUO5OIL (23:39)
[2018-02-22] MEDS: SODIUM CHLORIDE 0.9% 1000ML 1,000 ML IV SCH ×3 (02:15→21:03)
[2018-02-22 04:19] VITALS: BP 157/67; PULSE 60; TEMP 36.7; O2SAT 96
[2018-02-22] MEDS: CLONAZEPAM 0.5 MG TAB PO SCH (06:19)
[2018-02-22 07:21] VITALS: BP 109/66; PULSE 66; TEMP 36.8; O2SAT 93
[2018-02-22] MEDS ORDERED: LOPERAMIDE HCL 2 MG CAP PO ONE (09:00)
[2018-02-22 10:00] VITALS: BP 141/77
[2018-02-22] MEDS: DULOXETINE (CYMBALTA) 30 MG CAP PO SCH (10:13)
[2018-02-22] MEDS: MONTELUKAST SOD 10 MG TAB PO SCH (10:14)
[2018-02-22] MEDS: METOPROLOL SUCC 50MG EXT REL TAB PO SCH (10:15)
[2018-02-22] MEDS: PANTOprazole SOD 40 MG TAB PO SCH (10:15)
[2018-02-22] MEDS: OXYBUTYNIN CHLORIDE 5 MG TAB PO SCH (10:17)
[2018-02-22] MEDS: ASPIRIN 81 MG ECTAB PO SCH (10:18)
--- NOTE | 2018-02-22 10:49 | Progress Note ---
Medicine Progress Note Date & Time of Visit: February 22, 2018 at 10:31 . Subjective Nausea during the night. Frequent loose stools without melena or significant hematochezia (had minimal rectal bleeding). No fever. No anginal pain. No cough or SOB. . Objective Last 8 Hrs Date Time Temp Pulse Resp B/P (MAP) Pulse Ox O2 Delivery O2 Flow Rate FiO2 02/22/18 08:00 Room Air 02/22/18 07:21 36.8 66 18 109/66 (80) 93 Room Air 02/22/18 04:19 36.7 60 16 157/67 (97) 96 Room Air 02/22/18 04:00 Room Air Physical Exam: General- no acute distress Eyes- anicteric Lungs- clear to auscultation; no respiratory distress Cardiovascular- RRR; I/ systolic murmur at base; no gallop; no JVD; no pretibial edema Abdomen- + bowel sounds, soft, nontender Extremities- no cyanosis; no calf tenderness Neuro- alert, oriented Skin- warm & dry . Laboratory Results: Date/Time Source Procedure Growth Status 02/22/18 05:30 Stool C.difficile Toxin B Gene (PCR) - Final No C. difficile toxin B gene detected Complete 02/22/18 04:45 Stool Shiga Toxin Test Pending Received 02/22/18 04:45 Stool Stool Culture Pending Received Assessment & Plan CHEST PAIN Presented to ED with nausea, vomiting, chest pain. Seen in consultation by Cardiology. EKG showed nonspecific changes. Troponins negative. Echo did not show any wall motion abnormalities. CTA chest negative for PE. Chest pain probably secondary to nausea and vomiting. Cardiac cath in 2016 demonstrated normal coronary arteries. No need for further cardiac evaluation at this time. ELEVATED D-DIMER CTA chest negative for PE. Venous duplex lower extremities negative for DVT. NAUSEA / VOMITING / DIARRHEA History of Zenker's diverticulum, GERD, and Schatzki's ring. Presented with nausea, vomiting, diarrhea. Stools negative for C diff. Stool specimen for C&S routine enteric pathogens obtained, results pending. Patient most likely has viral gastroenteritis. Supportive care with IV fluids and anti-motility agents. RECTAL BLEEDING Patient noted minimal rectal bleeding associated with diarrhea. Last colonoscopy was years ago. 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 PULMONARY NODULES CTA chest demonstrated 2 small pulmonary nodules, measuring 3 and 4 mm. The 4 mm nodule is stable compared to CT done in 2015. The 3 mm nodule is newly noted. Remote smoking history- 30 years ago. Current Fleischner guidelines recommend optional f/u CT in 12 months for multiple nodules < 6 mm in high risk patients. Copy of CT requested for patient to share with her PCP. VTE PROPHYLAXIS SCD's ordered. Ambulate. DISPOSITION Expected discharge to home. Follow-up with PCP and GI in [place]. . Current Inpatient Medications: Current Inpatient Medications Medications (Trade) Dose Ordered Sig/Ember Route Start Time Stop Time Status Last Admin Dose Admin Ioversol (Optiray 320) 91 ml UD PRN IV 02/21/18 01:15 02/25/18 01:14 Acetaminophen (Tylenol Tab) 650 mg Q4H PRN PO 02/21/18 02:15 03/23/18 02:14 02/21/18 20:58 650 MG Al Hydrox/Mg Hydrox/Simethicone (Maalox Max Susp) 15 ml Q4H PRN PO 02/21/18 02:15 03/23/18 02:14 02/21/18 19:36 15 ML Ondansetron HCl (Zofran Inj) 4 mg Q6H PRN IV 02/21/18 02:15 03/23/18 02:14 02/21/18 09:38 4 MG Nitroglycerin (Nitrostat Tab) 0.4 mg UD PRN SL 02/21/18 02:15 03/23/18 02:14 02/21/18 06:19 0.4 MG Morphine Sulfate (MoRPHine SULFATE INJ) 2 mg Q30M PRN IV 02/21/18 02:15 03/07/18 02:14 02/21/18 06:31 2 MG Albuterol (Ventolin Hfa Inhaler) 1 puffs Q4H PRN INH 02/21/18 02:15 03/23/18 02:14 Aspirin (Ecotrin Tab) 81 mg DAILY PO 02/21/18 09:00 03/23/18 08:59 02/22/18 10:18 81 MG Duloxetine HCl (Cymbalta Cap) 60 mg QAM PO 02/21/18 09:00 03/23/18 08:59 02/22/18 10:13 30 MG Lamotrigine (Lamictal Tab) 150 mg QAM PO 02/21/18 09:00 03/23/18 08:59 02/22/18 10:17 200 MG Levalbuterol (Xopenex 0.63 Mg/ 3 Ml Neb) 0.63 mg Q4 PRN INH 02/21/18 02:15 03/23/18 02:14 Metoprolol Succinate (Toprol Xl Tab) 100 mg QAM PO 02/21/18 09:00 03/23/18 08:59 02/22/18 10:15 100 MG Montelukast Sodium (Singulair Tab) 10 mg QAM PO 02/21/18 09:00 03/23/18 08:59 02/22/18 10:14 10 MG Oxybutynin Chloride (Ditropan Tab) 2.5 mg DAILY PO 02/21/18 09:00 03/23/18 08:59 02/22/18 10:17 2.5 MG Pantoprazole Sodium (Protonix Tab) 40 mg QAM PO 02/21/18 09:00 03/23/18 08:59 02/22/18 10:15 40 MG Miscellaneous Information (Order Awaiting Action) 1 ea QS N/A 02/21/18 08:00 03/23/18 07:59 Clonazepam (Klonopin Tab) 0.5 mg DAILYBB PO 02/21/18 06:30 03/23/18 06:59 02/22/18 06:19 0.5 MG Clonazepam (Klonopin Tab) 1 mg HS PO 02/21/18 21:00 03/23/18 20:59 02/21/18 20:55 1 MG Sodium Chloride 1,000 ml @ 100 mls/hr Q10H IV 02/21/18 03:00 03/23/18 02:59 02/22/18 10:20 100 MLS/HR Miscellaneous (Iv Fluids Completed) 1 ea PRN PRN N/A 02/21/18 06:45 02/21/19 06:44 Calcium Carbonate (Tums Chew Tab) 500 mg Q4H PRN PO 02/21/18 19:00 03/23/18 18:59 02/21/18 19:36 500 MG
[2018-02-22] MEDS ORDERED: DULO60CA44 PO (10:51)
[2018-02-22] MEDS ORDERED: CYM/30 PO (10:51)
[2018-02-22] MEDS ORDERED: LOPERAMIDE HCL 2 MG CAP PO PRN (11:00)
[2018-02-22 11:21] VITALS: BP 115/65; PULSE 69; TEMP 37; O2SAT 98
[2018-02-22 11:53] LABS: HEMATOCRIT 37.3 % (37-47); HEMOGLOBIN 12.4 g/dL (12.0-16.0)
[2018-02-22 12:49] LABS: CALCIUM 8.2 mg/dl (8.5-10.1); CREATININE 0.81 mg/dl (0.60-1.20); POTASSIUM 3.7 mmol/L (3.5-5.1)
[2018-02-22 15:25] VITALS: BP 129/59; PULSE 65; TEMP 36.2; O2SAT 95
[2018-02-22 19:55] VITALS: BP 159/77; PULSE 130; TEMP 36.7; O2SAT 97
[2018-02-22] MEDS: ACETAMINOPHEN 325 MG TAB PO PRN (20:00)
[2018-02-22] MEDS ORDERED: DULOXETINE HCL 60 MG CAP PO SCH (21:00)
[2018-02-22] MEDS: CLONAZEPAM 1 MG TAB PO SCH (21:08)
[2018-02-23] VITALS: BP 129/69; PULSE 60; TEMP 36.6; O2SAT 97
[2018-02-23] MEDS: CLONAZEPAM 0.5 MG TAB PO SCH (06:06)
[2018-02-23] MEDS: SODIUM CHLORIDE 0.9% 1000ML 1,000 ML IV SCH (06:07)
[2018-02-23 07:43] VITALS: BP 120/68; PULSE 62; TEMP 36.6; O2SAT 94
[2018-02-23 08:05] VITALS: O2SAT 94
[2018-02-23] MEDS: METOPROLOL SUCC 50MG EXT REL TAB PO SCH (08:33)
[2018-02-23] MEDS: OXYBUTYNIN CHLORIDE 5 MG TAB PO SCH (08:33)
[2018-02-23] MEDS: PANTOprazole SOD 40 MG TAB PO SCH (08:34)
[2018-02-23] MEDS: MONTELUKAST SOD 10 MG TAB PO SCH (08:35)
[2018-02-23] MEDS: ASPIRIN 81 MG ECTAB PO SCH (08:35)
[2018-02-23] MEDS ORDERED: GUAIFENESIN 600 MG TABCR PO SCH (09:00)
[2018-02-23] MEDS ORDERED: DULOXETINE (CYMBALTA) 30 MG CAP PO SCH (09:00)
[2018-02-23] MEDS ORDERED: MELOXICAM 7.5 MG TAB PO SCH (09:00)
[2018-02-23] MEDS ORDERED: IMD2X PO ×2 (10:17→10:23)
[2018-02-23 10:40] VITALS: BP 120/68; PULSE 62; TEMP 36.6; O2SAT 94
--- NOTE | 2018-02-23 10:42 | Progress Note ---
Internal Med Progress Note Date of Service: February 23, 2018. Provider Documentation: SUBJECTIVE: Patient reports that diarrhea has resolved since yesterday night OBJECTIVE: Exam: General- no acute distress Eyes- EOMI Neck- no JVD Lungs- CTABL, no wheezing, no crackles Heart- regular rate Abdomen- soft, nontender, + bowel sounds Extremities- no edema Neuro- awake and alert ASSESSMENT & PLAN: Hospital Course, Hospital health issues, Discharge instructions Diagnosis: Gastroenteritis, Pulmonary nodules, atypical chest pain CHEST PAIN Presented to ED with nausea, vomiting, chest pain. Seen in consultation by Cardiology. EKG showed nonspecific changes. Troponins negative. Echo did not show any wall motion abnormalities. CTA chest negative for PE. Chest pain probably secondary to nausea and vomiting. Cardiac cath in 2016 demonstrated normal coronary arteries. No need for further cardiac evaluation at this time. ELEVATED D-DIMER CTA chest negative for PE. Venous duplex lower extremities negative for DVT. NAUSEA / VOMITING / DIARRHEA History of Zenker's diverticulum, GERD, and Schatzki's ring. Presented with nausea, vomiting, diarrhea. Stools negative for C diff. Patient most likely has viral gastroenteritis. Patient received IV fluids and loperamide in the hospital and the diarrhea has been resolving RECTAL BLEEDING Patient noted minimal rectal bleeding associated with diarrhea. Last colonoscopy was years ago. Patient to discuss with her tree specialist next week. PULMONARY NODULES CTA chest demonstrated 2 small pulmonary nodules, measuring 3 and 4 mm. The 4 mm nodule is stable compared to CT done in 2015. The 3 mm nodule is newly noted. Remote smoking history- 30 years ago. Current Fleischner guidelines recommend optional f/u CT in 12 months for multiple nodules < 6 mm in high risk patients. Written report of the CTA exam FINDINGS: Data Entry Representative topogram: Cholecystectomy clips noted. Pulmonary vasculature: The study is suboptimal for the assessment of the pulmonary vascular tree secondary to timing of the contrast bolus and respiratory motion artifact. Allowing for limited image quality, no central filling defect to suggest pulmonary embolus. Main pulmonary artery is not enlarged. No flattening of the interventricular septum. No intracardiac filling defect. No reflux of contrast into the hepatic veins. Remaining chest: On soft tissue windows, normal thyroid and thoracic inlet. Calcified right hilar and mediastinal lymph nodes likely indicate prior granulomatous infection. No axillary, supraclavicular, hilar, or mediastinal lymphadenopathy. Normal aorta. Top normal heart size. No pericardial or pleural effusion. Calcified granuloma the in the spleen likely indicates prior granulomatous infection. Small hiatal hernia. Suggestion of hepatic steatosis. On lung windows, allowing for extensive respiratory motion artifact, redemonstration of the solid 4 mm nodule at the left apex (series 4 image 204), stable to minimally enlarged. Calcified granuloma noted at the right lung base. Solid peripheral 3 mm nodule in the left lower lobe (series 4 image 106). It is difficult to assess if this is new as image quality in this region was degraded by motion artifact on prior imaging. Mosaic attenuation on the current study likely indicates small airways disease. Central airways patent. On bone windows, degenerative changes of the spine. Postsurgical changes of the left humeral head suspected. IMPRESSION: 1. Allowing for suboptimal image quality, no evidence of pulmonary embolus. 2. Two solid pulmonary nodules, the largest at the left apex measuring 4 mm. This is stable to minimally enlarged since 2015 suggesting benignity. The additional nodule present and may be new from prior. Follow-up per Ed Society 2017 recommendations below. 3. Evidence of prior granulomatous infection. Discharge instructions Patient is to be discharged from the hospital. She is to follow-up with PCP and GI doctors in [place]. Vital Signs: Date Time Temp Pulse Resp B/P (MAP) Pulse Ox O2 Delivery O2 Flow Rate FiO2 02/23/18 08:05 94 Room Air 02/23/18 07:43 36.6 62 16 120/68 (85) 94 02/23/18 00:00 Room Air 02/23/18 00:00 36.6 60 18 129/69 (89) 97 Room Air 02/22/18 19:55 36.7 130 20 159/77 (104) 97 02/22/18 16:00 Room Air 02/22/18 15:25 36.2 65 20 129/59 (82) 95 Room Air 02/22/18 12:00 Room Air 02/22/18 11:21 37.0 69 18 115/65 (82) 98 Lab Results: Results Past 24 Hours Test 02/22/18 11:21 Range/Units Hemoglobin 12.4 12.0-16.0 g/dL Hematocrit 37.3 37-47 % Sodium Level 141 136-145 mmol/L Potassium Level 3.7 3.5-5.1 mmol/L Chloride Level 109 98-107 mmol/L Carbon Dioxide Level 29 21-32 mmol/L Anion Gap 3.0 3-11 mmol/L Blood Urea Nitrogen 10 7-18 mg/dl Creatinine 0.81 0.60-1.20 mg/dl Est Creatinine Clear Calc Drug Dose 89.1 ml/min Estimated GFR () 87.7 Estimated GFR (Non- 75.7 BUN/Creatinine Ratio 12.6 10-20 Random Glucose 96 70-99 mg/dl Calcium Level 8.2 8.5-10.1 mg/dl
--- NOTE | 2018-02-23 11:01 | Discharge Summary ---
Discharge Summary Date of Service February 23, 2018. Discharge Summary Admission Date: February 22, 2018 at 12:50 Discharge Date: February 23, 2018 Discharge Disposition: Home Principal Diagnosis: gastroenterities, non cardica chest pain, diarrhea, pulmonary nodules Medication Reconciliation New Medications: Loperamide Hcl (Imodium) 2 Mg Cap 2 MG PO Q6H PRN for diarrhea for 3 Days, #12 CAP 0 Refills Continued Medications: Albuterol (Proair Hfa) Aers 2 PUFF INH Q4H PRN for WHEEZING Aspirin (Aspirin Ec) 81 Mg Tab 81 MG PO DAILY Clonazepam (Clonazepam) 0.5 Mg Tab 0.5 MG PO DAILYBB, #30 Clonazepam (Clonazepam) 1 Mg Tab 1 MG PO HS, #10 Duloxetine HCl (Cymbalta) 30 Mg Cap 60 MG PO HS Duloxetine HCl (Cymbalta) 30 Mg Cap 30 MG PO QAM Duloxetine Hcl (Cymbalta) 60 Mg Cap 60 MG PO HS, CAP Fluocinolone Acetonide (Fluocinolone Acetonide) 0.01 % Cre TOP PRN for Itching Lamotrigine (Lamictal) 150 Mg Tab 150 MG PO QAM, TAB Levalbuterol Soln (Xopenex 0.63MG/3ML) Nebu 0.63 MG INH QID PRN, 0 Refills Meloxicam (Mobic) 15 Mg Tab 15 MG PO QAM, TAB Metoprolol Succ (Toprol Xl) (Toprol-Xl ) 100 Mg Tabcr 100 MG PO QAM, TAB Montelukast (Singulair *) 10 Mg Tab 10 MG PO QAM, 0 Refills Nitroglycerin (Nitrostat) 0.4 Mg/1 Tab Subl 0.4 MG SL Q4 PRN for Chest Pain for 30 Days Oxybutynin Chloride (Ditropan) 5 Mg Tab 2.5 MG PO DAILY, TAB Pantoprazole Sodium (Protonix) 40 Mg Tab 40 MG PO QAM, #30 TAB Discontinued Medications: Desloratadine (Clarinex) 5 Mg Tab 5 MG PO QAM, TAB Admission Information HPI (per Admitting provider): CHIEF COMPLAINT: Chest pain. HISTORY OF PRESENT ILLNESS: This is a 67-year-old female with past medical history significant for anxiety, insomnia, essential tremor, irritable bowel syndrome, osteoarthritis of multiple sites, asthma, history of tobacco abuse, major depression, dysphagia, esophageal diverticulum, GERD, overactive bladder, history of bronchitis, and history of obesity, presents with not feeling well and chest pain. Patient moved away from [place] about a year ago, currently living at [place]. She came to visit [place]. Since today morning, she was not feeling well, had headaches, nausea and some vomiting and several episodes of diarrhea and later she developed chest pain which prompted her to come to the ER. She took nitro at home that did not help, but currently the chest pain has gone by itself and nausea is better, but still is feeling weak and tired. Denies any dizziness, no blurred visions, no earache, no runny nose, no sore throat, no cough. Normal bladder movements. No bloody micturition. No blood in the urine or blood in the stools. No skin rash. Patient says she is to follow up with GI here and she has a history of esophageal diverticulum. She vomited a couple of walnuts the other day. She has an appointment with GI next week in [place] .Patient says she has a flight to [place] on Wednesday and would like to get discharged tomorrow if she is doing okay. ALLERGIES: CODEINE, PENICILLINS. PAST MEDICAL HISTORY: As mentioned above. PAST SURGICAL HISTORY: Right total knee arthroplasty, history of cardiac catheterization, EGDs, right knee arthroscopy, left thumb surgery for tendonitis, removal of growth in foot, rotator cuff repair on the left side, total hysterectomy with removal of tubes. MEDICATIONS: Patient is on aspirin 81 mg p.o. daily, Klonopin 0.5 mg in a.m. and 1 mg at nighttime, Cymbalta 60 mg p.o. at bedtime, lamotrigine 150 mg p.o. daily, albuterol 2 puffs every 4 hours p.r.n., Xopenex 0.3 mg inhalation q.i.d. p.r.n., Toprol-XL 100 mg p.o. q.a.m., Meloxicam 15 mg p.o. q.a.m., Singulair 10 mg p.o. q.a.m., nitroglycerin 0.4 mg sublingual p.r.n., Ditropan 2.5 mg p.o. daily, Protonix 40 mg p.o. in a.m. FAMILY HISTORY: Significant for mother had arthritis, diabetes, CHF, hypertension. Father has lung disorder, prostate cancer, glaucoma, ear problems. SOCIAL HISTORY: Former smoker, quit in 1997. Prior to that, smoked 2-1/2 packs a day for 21 years. No alcohol use, no drug use. REVIEW OF SYMPTOMS: As per HPI. Rest of review of symptoms negative. Physical Exam (per Admitting): PHYSICAL EXAMINATION: GENERAL: Patient is obese, not in distress. VITAL SIGNS: Temperature 37.3, pulse 64, respiratory rate 20, blood pressure 107/58, oxygen 98% on room air. HEENT: No pallor, no icterus. Pupils equal, round, and reactive to light. NECK: No JVD, no neck masses, no carotid bruits. CARDIOVASCULAR: S1, S2, regular rate and rhythm, no murmur, no gallop. RESPIRATORY SYSTEM: Clear to auscultation bilaterally. No wheezing, no crackles. ABDOMEN: Soft, bowel sounds present. Nontender. No distention. CENTRAL NERVOUS SYSTEM: Cranial nerves II-XII grossly intact. Nonfocal. EXTREMITIES: Lower extremity, trace pedal edema present. No erythema seen. Hospital Course Hospital Course, Hospital health issues, Discharge instructions Diagnosis: Gastroenteritis, Pulmonary nodules, atypical chest pain CHEST PAIN Presented to ED with nausea, vomiting, chest pain. Seen in consultation by Cardiology. EKG showed nonspecific changes. Troponins negative. Echo did not show any wall motion abnormalities. CTA chest negative for PE. Chest pain probably secondary to nausea and vomiting. Cardiac cath in 2016 demonstrated normal coronary arteries. No need for further cardiac evaluation at this time. ELEVATED D-DIMER CTA chest negative for PE. Venous duplex lower extremities negative for DVT. NAUSEA / VOMITING / DIARRHEA History of Zenker's diverticulum, GERD, and Schatzki's ring. Presented with nausea, vomiting, diarrhea. Stools negative for C diff. Patient most likely has viral gastroenteritis. Patient received IV fluids and loperamide in the hospital and the diarrhea has been resolving RECTAL BLEEDING Patient noted minimal rectal bleeding associated with diarrhea. Last colonoscopy was years ago. Patient to discuss with her long term care social worker next week. PULMONARY NODULES CTA chest demonstrated 2 small pulmonary nodules, measuring 3 and 4 mm. The 4 mm nodule is stable compared to CT done in 2015. The 3 mm nodule is newly noted. Remote smoking history- 30 years ago. Current Fleischner guidelines recommend optional f/u CT in 12 months for multiple nodules < 6 mm in high risk patients. Written report of the CTA exam FINDINGS: Template Layout Worker topogram: Cholecystectomy clips noted. Pulmonary vasculature: The study is suboptimal for the assessment of the pulmonary vascular tree secondary to timing of the contrast bolus and respiratory motion artifact. Allowing for limited image quality, no central filling defect to suggest pulmonary embolus. Main pulmonary artery is not enlarged. No flattening of the interventricular septum. No intracardiac filling defect. No reflux of contrast into the hepatic veins. Remaining chest: On soft tissue windows, normal thyroid and thoracic inlet. Calcified right hilar and mediastinal lymph nodes likely indicate prior granulomatous infection. No axillary, supraclavicular, hilar, or mediastinal lymphadenopathy. Normal aorta. Top normal heart size. No pericardial or pleural effusion. Calcified granuloma the in the spleen likely indicates prior granulomatous infection. Small hiatal hernia. Suggestion of hepatic steatosis. On lung windows, allowing for extensive respiratory motion artifact, redemonstration of the solid 4 mm nodule at the left apex (series 4 image 204), stable to minimally enlarged. Calcified granuloma noted at the right lung base. Solid peripheral 3 mm nodule in the left lower lobe (series 4 image 106). It is difficult to assess if this is new as image quality in this region was degraded by motion artifact on prior imaging. Mosaic attenuation on the current study likely indicates small airways disease. Central airways patent. On bone windows, degenerative changes of the spine. Postsurgical changes of the left humeral head suspected. IMPRESSION: 1. Allowing for suboptimal image quality, no evidence of pulmonary embolus. 2. Two solid pulmonary nodules, the largest at the left apex measuring 4 mm. This is stable to minimally enlarged since 2015 suggesting benignity. The additional nodule present and may be new from prior. Follow-up per Ed Society 2017 recommendations below. 3. Evidence of prior granulomatous infection. Discharge instructions Patient is to be discharged from the hospital. She is to follow-up with PCP and GI doctors in [place]. Total time spent on discharge = 40 minutes This includes examination of the patient, discharge planning, medication reconciliation, and communication with other providers. Discharge Instructions see above
--- NOTE | 2018-02-23 11:01 | Discharge Instructions ---
Discharge Instructions Date of Service February 23, 2018. Admission Reason for Admission: Substernal Precordial Chest Pain Discharge Discharge Diagnosis / Problem: gastroenterities, non cardica chest pain, diarrhea, pulmonary nodules Discharge Goals Goal(s): Improve function, Improve disease control Activity Recommendations Activity Limitations: per Instructions/Follow-up section Shower/Bathe: no limitations . Current Hospital Diet Patient's current hospital diet: AHA Diet (Heart Healthy), Low Fat Diet, Low Lactose Diet Discharge Diet Recommended Diet: AHA Diet (Heart Healthy), Low Fat Diet, Low Lactose Diet Pending Studies Studies pending at discharge: no Laboratory Results 02/21/18 05:52 Red Blood Count 3.93, Mean Corpuscular Volume 93.4, Mean Corpuscular Hemoglobin 31.6, Mean Corpuscular Hemoglobin Concent 33.8, Mean Platelet Volume 8.2, Neutrophils (%) (Auto) 76.9, Lymphocytes (%) (Auto) 15.7, Monocytes (%) (Auto) 6.3, Eosinophils (%) (Auto) 0.5, Basophils (%) (Auto) 0.2, Neutrophils # (Auto) 4.30, Lymphocytes # (Auto) 0.88, Monocytes # (Auto) 0.35, Eosinophils # (Auto) 0.03, Basophils # (Auto) 0.01 02/22/18 11:21 02/22/18 11:21 Test 02/20/18 23:15 02/21/18 01:56 02/21/18 05:52 02/21/18 10:00 D-Dimer 1300 ug/L FEU (0-500) Total Bilirubin 0.4 mg/dl (0.2-1) Direct Bilirubin 0.2 mg/dl (0-0.2) Aspartate Amino Transf (AST/SGOT) 21 U/L (15-37) Alanine Aminotransferase (ALT/SGPT) 26 U/L (12-78) Alkaline Phosphatase 89 U/L (45-117) Total Protein 7.0 gm/dl (6.4-8.2) Albumin 3.4 gm/dl (3.4-5.0) Lipase 281 U/L (73-393) Bedside Troponin I < 0.030 ng/ml (0-0.045) White Blood Count 5.59 K/uL (4.8-10.8) Red Blood Count 3.93 M/uL (4.2-5.4) Hemoglobin 12.4 g/dL (12.0-16.0) Hematocrit 36.7 % (37-47) Mean Corpuscular Volume 93.4 fL (80-100) Mean Corpuscular Hemoglobin 31.6 pg (25-34) Mean Corpuscular Hemoglobin Concent 33.8 g/dl (32-36) Platelet Count 160 K/uL (130-400) Mean Platelet Volume 8.2 fL (7.4-10.4) Neutrophils (%) (Auto) 76.9 % Lymphocytes (%) (Auto) 15.7 % Monocytes (%) (Auto) 6.3 % Eosinophils (%) (Auto) 0.5 % Basophils (%) (Auto) 0.2 % Neutrophils # (Auto) 4.30 K/uL (1.4-6.5) Lymphocytes # (Auto) 0.88 K/uL (1.2-3.4) Monocytes # (Auto) 0.35 K/uL (0.11-0.59) Eosinophils # (Auto) 0.03 K/uL (0-0.5) Basophils # (Auto) 0.01 K/uL (0-0.2) RDW Standard Deviation 45.4 fL (36.4-46.3) RDW Coefficient of Variation 13.2 % (11.5-14.5) Immature Granulocyte % (Auto) 0.4 % Immature Granulocyte # (Auto) 0.02 K/uL (0.00-0.02) Triglycerides Level 177 mg/dl (0-150) Cholesterol Level 137 mg/dl (0-200) HDL Cholesterol 37 mg/dl LDL Cholesterol, Calculated 65 mg/dl VLDL Cholesterol, Calculated 35 mg/dl Cholesterol/HDL Ratio 3.7 Creatine Kinase MB Ratio (0-3.0) Test 02/21/18 10:18 02/22/18 11:21 Creatine Kinase MB < 0.5 ng/ml (0.5-3.6) Troponin I < 0.015 ng/ml (0-0.045) Anion Gap 3.0 mmol/L (3-11) Est Creatinine Clear Calc Drug Dose 89.1 ml/min Estimated GFR () 87.7 Estimated GFR (Non- 75.7 BUN/Creatinine Ratio 12.6 (10-20) Calcium Level 8.2 mg/dl (8.5-10.1) Date/Time Source Procedure Growth Status 02/22/18 05:30 Stool C.difficile Toxin B Gene (PCR) - Final No C. difficile toxin B gene detected Complete Lipid Panel Test 02/21/18 05:52 Range/Units Triglycerides Level 177 H 0-150 mg/dl Cholesterol Level 137 0-200 mg/dl HDL Cholesterol 37 mg/dl Cholesterol/HDL Ratio 3.7 LDL Cholesterol, Calculated 65 mg/dl Medical Emergencies . Who to Call and When: Medical Emergencies: If at any time you feel your situation is an emergency, please call 911 immediately. . Non-Emergent Contact Non-Emergency issues call your: Primary Care Provider, [facility] . . "Provider Documentation" section prepared by Kale Guzman. .
[2018-02-23 12:02] VITALS: BP 118/68; PULSE 63; TEMP 37; O2SAT 96
== END 2018-02-23 13:48 | disposition home or self-care (01) | DRG 392 ==
LOC: C.EDB 22:38 → C.MED 02-21 02:19 → ENRESERV 02-21 02:31 → C.MED 02-22 08:45 → OBSVTOIN 02-22 12:50
PROVIDERS: ADMIT Internal Medicine; ATTEND Hospitalist
DX: A08.4 Viral intestinal infection, unspecified (principal); K62.5 Hemorrhage of anus and rectum; Z68.42 Body mass index [BMI] 45.0-49.9, adult; R07.89 Other chest pain; R79.1 Abnormal coagulation profile; R53.1 Weakness; R91.8 Other nonspecific abnormal finding of lung field; R13.10 Dysphagia, unspecified; K22.5 Diverticulum of esophagus, acquired; K22.2 Esophageal obstruction; J45.909 Unspecified asthma, uncomplicated; I10 Essential (primary) hypertension; K58.0 Irritable bowel syndrome with diarrhea; K21.9 Gastro-esophageal reflux disease without esophagitis; M19.90 Unspecified osteoarthritis, unspecified site; N32.81 Overactive bladder; G25.0 Essential tremor; F32.9 Major depressive disorder, single episode, unspecified; F41.9 Anxiety disorder, unspecified; E66.9 Obesity, unspecified; Z96.651 Presence of right artificial knee joint; Z87.891 Personal history of nicotine dependence; Z79.1 Long term (current) use of non-steroidal anti-inflammatories (NSAID); Z79.82 Long term (current) use of aspirin; Z79.899 Other long term (current) drug therapy; Z88.0 Allergy status to penicillin; Z88.5 Allergy status to narcotic agent